=== PATIENT | female | born 1940 | race Caucasian/White ===

== ENCOUNTER → 2016-11-17 10:53 | Outpatient (CLI) | payer MEDICARE ==
[2015-04-16 10:23] VITALS: BMI 24.0
[~2016-11-17 10:53] MED LIST: ALENDRONATE SOD70 MG PO; ALEVE220 MG PO; ARTIFICIAL TEAR15 ML EACH EYE; BAYER CHEWABLE81 MG PO; BETADINE TP; BLACK COHOSH200 MG PO; CO Q-10200 MG PO; CO Q-1030 MG PO; COLACE100 MG PO; CORDARONE200 MG PO; COZAAR50 MG PO; ESTRADIOL; FISH OIL 1,0001 CA1 PO; FISH OIL 1,2001 CAP PO; GLUCOSAMINE & C1 CAP PO; GLUCOSAMINE HC500 MG PO; HYDROCHLOROTH12.5 M1 PO; HYDROCODONE-APA1 TAB PO; K-DUR20 MEQ PO; KLONOPIN1 MG PO; LASIX40 MG PO; MIRALAX17 GM PO; MIRAPEX ER1.5 MG PO; MIRAPEX0.5 MG PO; MOBIC7.5 MG PO; REQUIP1 MG PO; SENOKOT-S TABLE1 TAB PO; TENORETIC 50 TA1 TAB PO; TRAZODONE HCL150 MG PO; TRAZODONE HCL50 MG PO; ULTRAM50 MG PO; VITAMIN B-12100 MCG PO; VITAMIN D5000 UNIT PO; ZESTORETIC 20/21 TAB PO; [UNRECOGNIZED DRUG - OTHER] PO
== END | disposition home or self-care (01) ==
LOC: D.CT 10:53
DX: R51 Headache (principal)

== ENCOUNTER 2016-12-16 10:46 | Outpatient (CLI) | payer MEDICARE ==
[~2016-12-16] VITALS: Ht 158.8 cm; Wt 59.5 kg
--- NOTE | ~2016-12-16 | HEMODYNAMI ---
PATIENT:SHANICE SWENSON MEDICAL RECORD: [id number] : 44 LOCATION:DJADA ADMISSION DATE: 12/16/16 Generatedon:12/16/201613:12 Patient name: SHANICE SWENSON Patient #: [id number] : 1940 Date of study: 12/16/2016 Page: Of Hemodynamic Procedure Report Patient Data Patient Demographics Procedure consent was obtained First Name: SHANICE Gender: Female Last Name: MESSI : 1940 [facility] Initial: Sage Age: 76 year(s) Patient #: [id number] Race: SSN: [id number] Additional ID: [id number] Contact details Address: [address] [place] [address] [place] State: [place] City: [place] Zip code: [address] Past Medical History Allergies Allergen Reaction Date Comments Reported Other allergy 12/16/2016 benadryl Admission Admission Data Admission Date: 12/16/2016 Admission Time: 10:46 Arrival Date: 12/16/2016 Arrival Time: 13:00 Admit Source: Other Insurance Payor: Medicare Height (in.): 63 BSA: 1.64 (m2) Height (cm.): 160.02 BMI: 23.91 (kg/m2) Weight (lbs.): 135 Weight (kg.): 61.23 Lab Results Lab Result Date: 12/16/2016 Lab Result Time: 0:00 Biochemistry Name Units Result Min Max BUN mg/dl 16 --(---*)-- 7 18 Creatinine mg/dl 0.6 --(*---)-- 0.6 1.3 CBC Name Units Result Min Max Hemoglobin g/dl 14.5 --(*---)-- 13.5 17.5 Procedure Procedure Types Cath Procedure Diagnostic Procedure C [facility] w/Coronaries Procedure Description Procedure Date Procedure Date: 12/16/2016 Procedure Start Time: 12:52 Procedure End Time: 13:06 Procedure Staff Name Function Balbir Amos MD Performing Physician Dyana Gonzales RT Scrub Eden Ibarra RN Nurse Cony Carrillo RT Monitor Procedure Data Cath Procedure Fluoroscopy Diagnostic fluoroscopy Total fluoroscopy Time: 1.7 time: 1.7 min min Diagnostic fluoroscopy Total fluoroscopy dose: dose: 86.88 mGy 86.88 mGy Contrast Material Contrast Material Type Amount (ml) Isovue 370 58 Entry Location Entry Primary Successful Side Size Upsize Upsize Entry Closure Succes sful Closure Location (Fr) 1 (Fr) 2 (Fr) Remarks Device Remarks Femoral Right 5 Fr Exoseal artery Estimated blood loss: 5 ml Diagnostic catheters Device Type Used For End Catheter Placement Cordis 5Fr JL 4.0 Left Coronary Catheter (MP) Angiography Cordis 5Fr 3DRC Catheter Right Coronary (MP) Angiography Cordis 5Fr Pigtail Multi-vessel Catheter (MP) Angiography Procedure Complications No complications Procedure Medications Medication Administration Route Dosage Oxygen NC 2 l/min Heparin Flush Bag added to field 2 bags (1000units/500ml NS) Lidocaine 2% added to field 20 Fentanyl I.V. 25 mcg Versed I.V. 0.5 mg Fentanyl I.V. 50 mcg Versed I.V. 1 mg Fentanyl I.V. 25 mcg Versed I.V. 0.5 mg Hemodynamics Rest BSA: 1.64 (m2) HGB: 14.5 (g/dl) O2 Consumption: Estimated: 156.33 (ml/min) O2 Co nsumption indexed: Estimated:95.32 (ml/min/m) Heart Rate: 81 (bpm) Pressure Samples Time Site Value (mmHg) Purpose Heart Use Rate(bpm) 12:56 LV 147/79,68 Snapshot 75 Snapshots Pre Cath Intra NCS Post Cath Vital Signs Time Heart Resp SPO2 NIBP (mmHg) Rhythm Pain Sedation Rate (ipm) (%) Status Level (bpm) 12:43:33 78 16 100 169/97(121) NSR 0 (11) 10(A) , No pain 12:47:58 75 17 100 162/86(131) NSR 0 (11) 9(A) , No pain 12:52:18 75 19 99 142/82(122) NSR 0 (11) 9(A) , No pain 12:56:38 75 16 99 140/77(108) NSR 0 (11) 9(A) , No pain 13:00:54 75 17 98 143/77(112) NSR 0 (11) 9(A) , No pain 13:05:14 75 16 98 146/75(107) NSR 0 (11) 9(A) , No pain Medications Time Medication Route Dose Verified Delivered Reason Notes Effec tiveness by by 12:43:24 Oxygen NC 2 Eden Eden used for l/min Ibarra Ibarra cadd technician RN 12:43:31 Heparin Flush added 2 Eden Eden used for Bag to bags Ibarra Ibarra procedure (1000units/500ml field RN RN NS) 12:43:40 Lidocaine 2% added 20ml Eden Eden used for to vial Ibarra Ibarra procedure field RN RN 12:45:48 Fentanyl I.V. 25 Eden Eden for mcg Ibarra Ibarra sedation RN RN 12:45:54 Versed I.V. 0.5 Eden Eden for mg Ibarra Ibarra sedation RN RN 12:52:54 Fentanyl I.V. 50 Eden Eden for mcg Ibarra Ibarra sedation RN RN 12:52:58 Versed I.V. 1 mg Eden Eden for Ibarra Ibarra sedation RN RN 12:54:25 Fentanyl I.V. 25 Eden Eden for mcg Ibarra Ibarra sedation RN RN 12:54:28 Versed I.V. 0.5 Eden Eden for mg Ibarra Ibarra sedation RN director of religious life Log Time Note 12:00:49 Eden Ibarra RN sent for patient. Start room use. 12:14:14 Informed consent obtained and on chart 12:14:21 Diagnostic Cath Status : Elective 12:14:55 Time tracking: Regular hours 12:14:59 Plan of Care:Hemodynamics will remain stable., Cardiac rhythm will remain stable., Comfort level will be maintained., Respiratory function will remain adequate., Patient/ family verbilizes understanding of procedure., Procedure tolerated without complication., Recovers from procedure without complications.. 12:15:56 Admit Source: Other 12:15:58 Arrival Date: 12/16/2016 1:00:00 PM 12:16:06 Patient Height : 160.02 inches 12:16:15 Patient Weight : 61.23 lbs 12:16:15 Insurance Payor : Medicare 12:17:32 Lab Result : BUN 16 mg/dl 12:17:32 Lab Result : Hemoglobin 14.5 g/dl 12:17:32 Lab Result : Creatinine 0.6 mg/dl 12:33:35 Patient received from Pre/Post Procedure Room to CCL 2 Alert and oriented. Tansferred to table in Supine position. 12:33:36 Warm blankets applied, and nelson hugger turned on for patient comfort. 12:33:36 Correct patient and procedure confirmed by team. 12:33:38 ECG and BP/O2 sat monitors applied to patient. 12:38:20 Vital chart was started 12:38:21 Baseline sample Acquired. 12:38:28 Rhythm: sinus rhythm 12:38:29 Baseline sample Acquired. 12:42:34 Full Disclosure recording started 12:42:48 H&P Date Dictated: 11/24/2016 Within 30 days and on chart., H&P Addendum completed by physician on day of procedure. (MUST COMPLETE FOR ALL OUTPATIENTS). 12:42:50 Pre-procedure instructions explained to patient. 12:42:50 Pre-op teaching completed and patient verbalized understanding. 12:42:51 Family in waiting room. 12:42:52 Patient NPO since Midnight. 12:43:05 Patient allergic to Other allergybenadryl 12:43:24 Oxygen 2 l/min NC was given by Eden Ibarra RN; used for procedure; 12:43:27 Is the patient allergic to Iodine/contrast media? No. 12:43:28 Was the patient premedicated? No 12:43:31 Heparin Flush Bag (1000units/500ml NS) 2 bags added to field was given by Eden Ibarra RN; used for procedure; 12:43:34 Is patient on blood thinner?No 12:43:35 Patient diabetic? No. 12:43:37 Previous problem with sedation/anesthesia? No ? 12:43:39 Snore? Yes 12:43:40 Lidocaine 2% 20ml vial added to field was given by Eden Ibarra RN; used for procedure; 12:43:40 Sleep apnea? No 12:43:41 Deviated septum? No 12:43:42 Opens mouth fully? Yes 12:43:42 Sticks out tongue? Yes 12:43:44 Airway obstruction? No ? 12:43:52 Dentures? Yes in tight 12:43:57 Pre procedure: right dorsailis pedis pulse 1+ Palpable, but thready & weak; easily obliterated 12:43:59 Patient pain scale 0/10 ?. 12:44:10 IV patent on arrival in left antecubital with 0.9% NaCl at [facility]. 12:44:13 Lab results completed and on chart. 12:44:16 Right groin area was prepped with chlora-prep and draped in sterile fashion 12:44:17 Alarms reviewed by R. N. 12:44:18 Sharps counted by scrub and verified by R.N. 12:44:19 Physician arrived 12:44:20 --------ALL STOP TIME OUT------ 12:44:20 Final Timeout: patient, procedure, and site verified with staff and physician. All members of the team are in agreement. 12:44:22 Right groin site verified by team. 12:44:25 Physical assessment completed. ASA score P 2 - A patient with mild systemic disease as per Balbir Amos MD. 12:44:28 Sedation plan: IV Moderate Sedation Versed, Fentanyl 12:44:32 Use device set Femoral Dx 12:44:33 Acist Syringe opened to sterile field. 12:44:33 Bag Decanter opened to sterile field. 12:44:33 Medline Cath Pack opened to sterile field. 12:44:34 Terumo 5Fr Spur Sheath opened to sterile field. 12:44:35 St Gurvinder 260cm J .035 wire opened to sterile field. 12:44:36 Acist Hand Control opened to sterile field. 12:44:36 Acist Manifold opened to sterile field. 12:44:37 Diagnostic Infinity 5Fr Multipack catheter opened to sterile field. 12:44:37 Tegaderm 4 x 4 opened to sterile field. 12:45:48 Fentanyl 25 mcg I.V. was given by Eden Ibarra RN; for sedation; 12:45:54 Versed 0.5 mg I.V. was given by Eden Ibarra RN; for sedation; 12:47:20 Baseline sample Acquired. 12:51:01 Procedure started. 12:52:11 Local anesthetic to right femoral artery with Lidocaine 2% by Balbir Amos MD.INITIAL ACCESS ONLY 12:52:54 Fentanyl 50 mcg I.V. was given by Eden Ibarra RN; for sedation; 12:52:58 Versed 1 mg I.V. was given by Eden Ibarra RN; for sedation; 12:54:25 Fentanyl 25 mcg I.V. was given by Eden Ibarra RN; for sedation; 12:54:28 Versed 0.5 mg I.V. was given by Eden Ibarra RN; for sedation; 12:54:42 A 5 Fr sheath was inserted into the Right Femoral artery 12:57:26 A Cordis 5Fr JL 4.0 Catheter (MP) was advanced over the wire and used for Left Coronary Angiography. 12:57:35 LCA angiography performed. 12:57:38 Injector settings: Ml/sec: 3, Volume: 6, 12:57:57 Catheter removed. 12:58:02 A Cordis 5Fr 3DRC Catheter (MP) was advanced over the wire and used for Right Coronary Angiography. 12:58:10 RCA angiography performed. 12:58:13 Injector settings: Ml/sec: 3, Volume: 6, 12:59:27 Catheter removed. 12:59:41 A Cordis 5Fr Pigtail Catheter (MP) was advanced over the wire and used for Multi-vessel Angiography. 13:02:28 Aortic Root visualized 13:03:02 Catheter removed. 13:03:10 Cordis 5Fr Exoseal opened to sterile field. 13:03:33 Sheath removed intact; hemostasis achieved with Exoseal to the Right Femoral artery. 13:03:51 Procedure ended.(Physican Out) 13:04:11 Fluoroscopy time 01.70 minutes. 13:04:24 Fluoroscopy dose: 86.88 mGy 13:04:24 Flurop Dose total: 86.88 13:05:13 Contrast amount:Isovue 370 58ml. 13:05:15 Sharps counted by scrub and verified by R.N. 13:05:16 Insertion/operative site no bleeding no hematoma. 13:05:19 Post-op/insertion site Right Femoral artery dressed using a 4 x 4 and Tegaderm. 13:05:21 Post right femoral artery:stable 13:05:23 Post Procedure Pulses reassessed and unchanged 13:05:26 Post procedure rhythm: unchanged. 13:05:28 Estimated blood loss: 5 ml 13:05:30 Post procedure instruction explained to patient.Patient verbalizes understanding. 13:05:30 Patient needs reinforcement of post procedure teaching. 13:05:37 Procedure type changed to Cath procedure, Diagnostic procedure, LHC, LHC w/Coronaries 13:05:38 Procedure and supply charges have been captured, reviewed, submitted and are correct. 13:05:44 Procedure Complication : No complications 13:05:47 Vital chart was stopped 13:05:47 See physician's report for complete and final results. 13:05:59 Report given to Pre/Post Procedure Room. 13:06:01 Patient transfered to Pre/Post Procedure Room with Stretcher. 13:06:03 Procedure ended. 13:06:03 Full Disclosure recording stopped 13:06:11 End room use (Document Last) Device Usage Item Name Manufacture Quantity Catalog Hospital Part Current Minimal Lo t# / Number Charge Number Stock Stock Serial# Code Acist Acist 1 [id number] [id number] 051779 990502 20 Syringe [employer] Inc Bag Microtek 1 2002S 814193 74411 651482 5 Decanter Medical Inc. Medline Cardinal 1 [id number] 369999 16643 384313 5 Cath Pack Health Terumo 5Fr Terumo 1 [id number] 750520 435255 148061 [address] St Gurvinder 1 161767 409929 731807 316826 30 260cm J .035 wire Acist Hand Acist 1 51781 596810 547500 506550 5 Control Medical Systems Inc Acist Acist 1 49448 994741 111771 718704 5 Manifold Medical Systems Inc Diagnostic Cardinal 1 SO2109 721130 17511 168897 30 Infinity Health 5Fr Multipack catheter Tegaderm 4 3M 1 1626W 427719 668500 912156 5 x 4 Cordis 5Fr Cardinal 1 916998 5 JL 4.0 Health Catheter (MP) Cordis 5Fr Cardinal 1 286387 5 3DRC Health Catheter (MP) Cordis 5Fr Cardinal 1 508628 5 Pigtail Health Catheter (MP) Cordis 5Fr Cardinal 1 EX500 820103 676698 793412 10 [employer] Signature Audit [place] Stage Time Signature Unsigned Intra-Procedure 12/16/2016 Cony Carrillo 1:12:13 PM RT(R) Signatures Monitor : Cony Carrillo RT Signature : Date : Time : [address] [address] [place] [address]
[~2016-12-16 10:46] MED LIST changes: -COZAAR50 MG PO; -FISH OIL 1,2001 CAP PO; -HYDROCHLOROTH12.5 M1 PO; -MIRAPEX ER1.5 MG PO
[2016-12-16] MEDS ORDERED: COZAAR50 MG PO (11:21)
[2016-12-16] MEDS ORDERED: HYDROCHLOROTH12.5 M1 PO (11:22)
[2016-12-16] MEDS ORDERED: MIRAPEX ER1.5 MG PO (11:23)
[2016-12-16] MEDS ORDERED: TRAZODONE HCL150 MG PO (11:24)
[2016-12-16] MEDS ORDERED: FISH OIL 1,2001 CAP PO (11:28)
[2016-12-16 11:29] VITALS: BP 175/86; Ht 158.8 cm; Wt 59.5 kg
[2016-12-16 11:34] LABS: BASOPHILS 0.2 % (0.0-2.0); EOSINOPHILS 1.8 % (0-7); HEMATOCRIT 43.6 % (36.0-48.0); HEMOGLOBIN 14.5 g/dL (12-16); IMMATURE GRANULOCYTES 0.2 % (0-5); LYMPHOCYTES 23.8 % (15-50); MCH 28.1 pg (26.0-34.0); MCHC 33.3 g/dL (31.0-37.0); MCV 84.5 fL (80.0-100.0); MONOCYTES 8.4 % (2-11); NEUTROPHILS 65.6 % (40-80); RBC 5.16 10x6/uL (4.00-5.40); RDW 13.3 % (11.5-14.5); WBC 4.5 10x3/uL (4.8-10.8)
[2016-12-16 11:40] LABS: PLATELET COUNT 190 10x3/uL (130-400)
[2016-12-16 11:45] LABS: CALC OSMOLALITY 271 mosm/kg (275-300); CALCIUM 9.8 mg/dL (8.5-10.1); CARBON DIOXIDE 30.2 mmol/L (21.0-32.0); CHLORIDE - SERUM 98 mmol/L (98-107); CREATININE - SERUM 0.6 mg/dL (0.6-1.3); GLUCOSE 88 mg/dL (74-106); POTASSIUM - SERUM 3.6 mmol/L (3.5-5.1); SODIUM 136 mmol/L (136-145); UREA NITROGEN 16 mg/dL (7-18); eGFR NON AFRICAN AMERICAN > 90 mL/min (90-120)
--- NOTE | 2016-12-16 13:55 | NUR ---
1330- 500CC OUT-BEDPAN, RIGHT GROIN CDI, NO HEMATOMA OR BLEEDING NOTED. SOFT TO TOUCH
--- NOTE | 2016-12-16 16:48 | NUR ---
1345-GROIN CDI 1400-NO CHANGE IN GROIN 1515-IV D'C WITH CATH TIP INTACT, WRITTEN AND VERBAL INSTRUCTIONS GIVEN TO PT AND - UNDERSTOOD. D'C HOME. DENIES FURTHUR NEEDS
--- NOTE | 2016-12-30 08:17 | OP ---
PATIENT NAME: SHANICE SWENSON MEDICAL RECORD: [id number] :44 LOCATION:D.CAT ADMISSION DATE: SURGEON: AARON JUAREZ M.D. DATE OF OPERATION: 12/16/2016 Catheterization Report REFERRING PHYSICIAN: Tyson Santiago DO PROCEDURES PERFORMED: 1. Selective coronary angiography. 2. Aortic root injection. INDICATION: A 76-year-old woman, who presents with symptoms of accelerating angina. EQUIPMENT USED: A 5-Kyrgyz JL4, Ortiz right, pigtail catheter. TECHNIQUE: A 5-Kyrgyz sheath was inserted in retrograde fashion in the right common femoral artery. Next, selective coronary angiography was performed in standard 5-Kyrgyz JL4 and Ortiz right. The aortic root injection was performed using pigtail catheter. CORONARY ANATOMY: 1. Left main: Left main trunk is moderate in caliber. It gives rise to the LAD and circumflex. It is angiographically normal. 2. LAD: This is a moderate caliber vessel, which terminates to just the proximal apex. It is a smooth-walled vessel and angiographically normal. 3. Circumflex: This vessel is small in caliber. It is a smooth-walled vessel and angiographically normal. 4. Right coronary artery: This vessel is quite large and dominant. The posterolateral branch and PDA encompassed the apex. This vessel is smooth-walled and angiographically normal. 5. 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 It appears the single arch may have been replaced as well. The aortic valve demonstrates no insufficiency. There is no ____ ascending aorta. IMPRESSION: 1. Normal coronary arteries. 2. No evidence of aortic insufficiency. PLAN: At this point, we will continue with medical management. TRANSINT:[id number] Voice Confirmation ID: [id number] DOCUMENT ID: [id number] AARON JUAREZ M.D. at 0817 CC: [id number] DICTATION DATE: 12/16/16 1310 FURNACE CARETAKER: 12/16/16 1817 DEP CLI 12/16/16 [id number] [place] [address]
== END 2016-12-16 15:30 | disposition home or self-care (01) ==
LOC: D.CATH 10:46
PROVIDERS: Internal Medicine Cardiovascular Disease
DX: I20.0 Unstable angina (principal); Z95.4 Presence of other heart-valve replacement

== ENCOUNTER → 2016-12-23 17:13 | Outpatient (CLI) | payer MEDICARE ==
[2016-12-16 11:29] VITALS: BMI 23.6
[~2016-12-23 17:13] MED LIST changes: +COZAAR50 MG PO; +FISH OIL 1,2001 CAP PO; +HYDROCHLOROTH12.5 M1 PO; +MIRAPEX ER1.5 MG PO
== END | disposition home or self-care (01) ==
LOC: D.MAMMO 11-19 15:30
DX: Z12.31 Encounter for screening mammogram for malignant neoplasm of breast (principal)

== ENCOUNTER 2017-05-04 07:31 | Day surgery (SDC) | payer MEDICARE ==
[2017-05-01 11:01] LABS: HEMATOCRIT 40.4 % (36.0-48.0); HEMOGLOBIN 13.4 g/dL (12-16); MCH 29.2 pg (26.0-34.0); MCHC 33.2 g/dL (31.0-37.0); MEAN PLATELET VOLUME 8.4 fL (7.4-10.4); RBC 4.59 10x6/uL (4.00-5.40); RDW 13.8 % (11.5-14.5); WBC 4.7 10x3/uL (4.8-10.8)
[2017-05-01 11:15] LABS: CALC OSMOLALITY 269 mosm/kg (275-300); CARBON DIOXIDE 30.2 mmol/L (21.0-32.0); CHLORIDE - SERUM 97 mmol/L (98-107); CREATININE - SERUM 0.7 mg/dL (0.6-1.3); GLUCOSE 92 mg/dL (74-106); SODIUM 134 mmol/L (136-145); UREA NITROGEN 17 mg/dL (7-18); eGFR NON AFRICAN AMERICAN 86 mL/min (90-120)
[~2017-05-04] VITALS: Ht 154.9 cm; Wt 56.7 kg
[~2017-05-04 07:31] MED LIST changes: +MELOXICAM TAB 15M PO
[2017-05-04 11:37] VITALS: BP 178/90; Ht 154.9 cm; Wt 56.7 kg
== END 2017-05-04 17:25 | disposition home or self-care (01) ==
LOC: D.OPS 07:31 → D.PAN 12:00 → D.OPS 12:00
PROVIDERS: Anesthesiology
DX: M21.612 Bunion of left foot (principal); Z01.810 Encounter for preprocedural cardiovascular examination; Z01.811 Encounter for preprocedural respiratory examination; Z01.812 Encounter for preprocedural laboratory examination

== ENCOUNTER → 2017-06-16 16:45 | Outpatient (CLI) | payer MEDICARE ==
[2017-05-04 11:37] VITALS: BMI 23.6
== END | disposition home or self-care (01) ==
LOC: D.US 16:30
DX: R60.0 Localized edema (principal)

== ENCOUNTER 2017-09-10 10:58 | Outpatient (CLI) | payer MEDICARE ==
[~2017-09-10] VITALS: Ht 154.9 cm; Wt 59.5 kg
--- NOTE | ~2017-09-10 | HEMODYNAMI ---
PATIENT:SHANICE SWENSON MEDICAL RECORD: [id number] : 44 LOCATION:D.CAT ADMISSION DATE: 09/10/17 Generatedon:09/10/201713:12 Patient name: SHANICE SWENSON Patient #: [id number] : 1940 Date of study: 09/10/2017 Page: Of Hemodynamic Procedure Report Patient Data Patient Demographics Procedure consent was obtained First Name: SHANICE Gender: Female Last Name: MESSI : 1940 [facility] Initial: Sage Age: 77 year(s) Patient #: [id number] Race: SSN: [id number] Additional ID: [id number] Contact details Address: [address] [place] [address] [place] State: [place] City: [place] Zip code: [address] Past Medical History Allergies Allergen Reaction Date Comments Reported Other allergy 12/16/2016 benadryl JR inhibitors 09/10/2017 Other allergy 09/10/2017 Benadryl Admission Admission Data Admission Date: 09/10/2017 Admission Time: 10:58 Procedure Procedure Types Cath Procedure Diagnostic Procedure ADOLFO Procedure Description Procedure Date Procedure Date: 09/10/2017 Procedure Start Time: 12:51 Procedure Staff Name Function Raciel Herrera MD Performing Physician Annika Logan RT Monitor Armaan Yates RN Nurse David Rankin MD Additional personnel Jose Alberto Montes Wood Room Supervisor Procedure Data Procedure Complications No complications Procedure Medications Medication Administration Route Dosage Oxygen NC 2 l/min Hurricaine [place] P.O. Sprays Refer to Anesthesia Notes for Sedation Medications Hemodynamics Rest Pre Cath Intra NCS Post Cath Vital Signs Time Heart Resp SPO2 etCO2 NIBP (mmHg) Rhythm Pain Sedation Rate (ipm) (%) (mmHg) Status Level (bpm) 12:52:41 91 17 100 11.3 157/94(130) NSR 0 (11) 10(A) , No pain 12:57:01 80 13 98 36.1 152/77(125) NSR 0 (11) 9(A) , No pain 13:01:15 75 14 94 35.4 138/72(116) NSR 0 (11) 9(A) , No pain 13:05:27 75 17 95 27.1 150/81(119) NSR 0 (11) 9(A) , No pain 13:10:38 75 16 96 24.8 155/86(110) NSR 0 (11) 10(A) , No pain Medications Time Medication Route Dose Verified Delivered Reason Notes Effective ness by by 12:49:49 Oxygen NC 2 Raciel Crook used for l/min St. Rojelio Yates RN procedure 12:50:08 Hurricaine P.O. Sprays Raciel Schrader used for Hartford [facility] procedure MD SMITH 12:51:56 Refer to Raciel Schrader Anesthesia [facility] Notes for MD SMITH Sedation Medications Procedure Log Time Note 12:36:32 Armaan Yates RN sent for patient. Start room use. 12:36:33 Time tracking: Regular hours 12:36:36 Plan of Care:Hemodynamics will remain stable., Cardiac rhythm will remain stable., Comfort level will be maintained., Respiratory function will remain adequate., Patient/ family verbilizes understanding of procedure., Procedure tolerated without complication., Recovers from procedure without complications.. 12:43:45 Patient received from Pre/Post Procedure Room to CCL 3 Alert and oriented. Tansferred to table in Supine position. 12:43:47 Warm blankets applied, and nelson hugger turned on for patient comfort. 12:43:47 Correct patient and procedure confirmed by team. 12:43:48 Signed procedure consent form obtained from patient. 12:43:49 ECG and BP/O2 sat monitors applied to patient. 12:43:50 Full Disclosure recording started 12:46:43 H&P Date Dictated: 08/13/2017 Within 30 days and on chart., H&P Addendum completed by physician on day of procedure. (MUST COMPLETE FOR ALL OUTPATIENTS). 12:46:44 Pre-procedure instructions explained to patient. 12:46:44 Pre-op teaching completed and patient verbalized understanding. 12:46:47 Family in waiting room. 12:46:49 Patient NPO since Midnight. 12:47:01 Patient allergic to JR inhibitors 12:47:12 Patient allergic to Other allergyBenadryl 12:47:14 Is the patient allergic to Iodine/contrast media? No. 12:47:16 Is patient on blood thinner?No 12:47:18 Patient diabetic? No. 12:47:21 Previous problem with sedation/anesthesia? No ? 12:47:22 Snore? Yes 12:47:23 Sleep apnea? No 12:47:23 Deviated septum? No 12:47:29 Opens mouth fully? Yes 12:47:30 Sticks out tongue? Yes 12:47:31 Airway obstruction? No ? 12:47:33 Dentures? Yes Out 12:47:37 Patient pain scale 0/10 ?. 12:47:44 IV patent on arrival in left hand with 0.9% NaCl at [facility]. 12:47:48 Lab results completed and on chart. 12:47:51 Alarms reviewed by RLizbeth N. 12:48:13 David Rankin MD present and monitoring patient for TIVA. 12:48:18 Jose Alberto Montes Music Worker present for ADOLFO. 12:49:49 Oxygen 2 l/min NC was administered by Armaan Yates RN; used for procedure; 12:50:08 Hurricaine [place] Sprays P.O. was administered by Raciel Herrera MD; used for procedure; 12:50:42 Final Timeout: patient, procedure, and site verified with staff and physician. All members of the team are in agreement. 12:50:51 Physical assessment completed. ASA score P 2 - A patient with mild systemic disease as per Raciel Herrera MD. 12:50:55 Sedation plan: TIVA Medication:Propofol 12:51:30 Vital chart was started 12:51:33 Rhythm: sinus rhythm 12:51:56 Refer to Anesthesia Notes for Sedation Medications was administered by Raciel Herrera MD; ; 12:52:05 Procedure started. 12:52:20 ADOLFO started. 12:53:49 Suction Tubing opened to sterile field. 12:59:38 ADOLFO completed. 12:59:41 Procedure ended.(Physican Out) 13:02:18 Post procedure rhythm: unchanged. 13:02:22 Post-procedure physical assessment completed. ASA score P 2 - A patient with mild systemic disease as per Raciel Herrera MD. 13:02:24 Post procedure instruction explained to patient.Patient verbalizes understanding. 13:02:25 Patient needs reinforcement of post procedure teaching. 13:03:35 Procedure and supply charges have been captured, reviewed, submitted and are correct. 13:03:42 Procedure Complication : No complications 13:03:44 See physician's report for complete and final results. 13:04:13 Report given to Pre/Post Procedure Room. 13:04:17 Patient transfered to Pre/Post Procedure Room with Stretcher. 13:05:28 End room use (Document Last) 13:12:08 Vital chart was stopped Device Usage Item Manufacture Quantity Catalog Hospital Part Current Minimal Lot# / Name Number Charge Number Stock Stock Serial# Code Suction Cardinal 1 [id number] 5 [facility] Signature Audit [place] Stage Time Signature Unsigned Intra-Procedure 09/10/2017 Annika 1:12:04 PM Counts RT(R) Signatures Monitor : Annika Signature : Counts RT Date : Time : [address] [id number]
[2017-09-10 11:37] LABS: HEMATOCRIT 41.4 % (36.0-48.0); HEMOGLOBIN 13.6 g/dL (12-16); MCH 29.6 pg (26.0-34.0); MCHC 32.9 g/dL (31.0-37.0); MCV 90.2 fL (80.0-100.0); MEAN PLATELET VOLUME 8.7 fL (7.4-10.4); RBC 4.59 10x6/uL (4.00-5.40); RDW 14.3 % (11.5-14.5); WBC 5.5 10x3/uL (4.8-10.8)
[2017-09-10 11:49] LABS: CALC OSMOLALITY 275 mosm/kg (275-300); CALCIUM 8.9 mg/dL (8.5-10.1); CARBON DIOXIDE 27.5 mmol/L (21.0-32.0); CHLORIDE - SERUM 101 mmol/L (98-107); CREATININE - SERUM 0.7 mg/dL (0.6-1.3); GLUCOSE 85 mg/dL (74-106); POTASSIUM - SERUM 3.9 mmol/L (3.5-5.1); SODIUM 136 mmol/L (136-145); UREA NITROGEN 27 mg/dL (7-18); eGFR NON AFRICAN AMERICAN 86 mL/min (90-120)
[2017-09-10 11:58] VITALS: Ht 154.9 cm; Wt 59.5 kg
--- NOTE | 2017-09-14 13:58 | TEE ---
PATIENT:SHANICE SWENSON MEDICAL RECORD: [id number] LOCATION:D.CAT AGE OF PATIENT: 77 ADMISSION DATE: 09/10/17 SEX: F REFERRING PHYSICIAN: INTERPRETING PHYSICIAN: ALEX MONTANEZ MD TRANSESOPHAGEAL ECHOCARDIOGRAM ADOLFO CHARGE Y INDICATIONS: ASSESS MITRAL REGURG PREMEDICATIONS: PATIENT'S RESPONSE PROCEDURE DOPPLER MEASUREMENTS: LVIT LA PA RA LVOT RVOT Asc. Ao AV Gradient Peak AV Mean AV Area MV Gradient Peak MV Mean MV Area INTERPRETATION: Doppler: 2-D: COLOR FLOW DOPPLER MILD PLUS MR NORMAL SALINE STUDY: MISCELLANOUS: DIAGNOSIS: PLAN: Veneer Drier:3 Dr. Herrera Rose Grower: Luzma CAMPBELL COMMENTS: ANN PATIENT DATE OF SERVICE: 09/10/2017 Transesophageal Note. DESCRIPTION OF PROCEDURE: After general sedation with TIVA via anesthesia, a transesophageal Omniplane probe was placed into the distal esophagus and proximal stomach without difficulty. FINDINGS: As follows: Borderline LVH. LV internal dimensions are normal. TRANSESOPHAGEAL ECHOCARDIOGRAM REPORT [id number] SHANICE SWENSON There is mild global hypo, more pronounced lateral hypo, overall function appears to be reduced at 40% to 45%. 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 Left atrium appears of normal dimensions. Mitral valve shows no prolapse, no more than mild plus MR. Multiple planes were taken through the mitral valve to assure no hidden jet. Left atrial appendage is well visualized. No evidence of thrombus. Right-sided chambers, these are grossly normal with trivial TR. Incidental node is made of the RV pacemaker lead in the RV apex. At the end of the procedure, the probe was turned posteriorly and this showed minimal atherosclerotic debris in the descending aorta. TRANSINT:[id number] Voice Confirmation ID: [id number] DOCUMENT ID: [id number] at 1358 CC: [id number] DICTATION DATE: 09/10/17 1307 DECORATING MACHINE TENDER: 09/11/17 0048 DEP CLI 09/10/17 [id number] [place] [address]
== END 2017-09-10 14:20 | disposition home or self-care (01) ==
LOC: D.CATH 10:58
PROVIDERS: Internal Medicine Interventional Cardiology
DX: I34.0 Nonrheumatic mitral (valve) insufficiency (principal)

== ENCOUNTER 2017-11-26 06:25 | Day surgery (SDC) | payer OTHER ==
[2017-11-25 08:46] LABS: HEMATOCRIT 41.3 % (36.0-48.0); MCHC 33.9 g/dL (31.0-37.0); MCV 88.6 fL (80.0-100.0); MEAN PLATELET VOLUME 8.2 fL (7.4-10.4); RBC 4.66 10x6/uL (4.00-5.40); RDW 14.2 % (11.5-14.5); WBC 6.6 10x3/uL (4.8-10.8)
[2017-11-25 08:48] LABS: CALC OSMOLALITY 260 mosm/kg (275-300); CALCIUM 9.4 mg/dL (8.5-10.1); CARBON DIOXIDE 30.7 mmol/L (21.0-32.0); CHLORIDE - SERUM 93 mmol/L (98-107); CREATININE - SERUM 0.7 mg/dL (0.6-1.3); GLUCOSE 96 mg/dL (74-106); POTASSIUM - SERUM 3.5 mmol/L (3.5-5.1); SODIUM 129 mmol/L (136-145); UREA NITROGEN 17 mg/dL (7-18); eGFR NON AFRICAN AMERICAN 86 mL/min (90-120)
[~2017-11-26] VITALS: Ht 152.4 cm; Wt 59.4 kg
--- NOTE | ~2017-11-26 | OP ---
PATIENT NAME: SHANICE SWENSON MEDICAL RECORD: [id number] :42 [facility] AD[facility] DATE: SURGEON: NITIN RIVERS DATE OF OPERATION: 11/26/2017 SURGEON: Nitin Rivers DPM PREOPERATIVE DIAGNOSES: 1. Hallux abductovalgus deformity, right foot. 2. Hammertoe deformity, second toe, right foot. 3. Painful hardware, right ankle. POSTOPERATIVE DIAGNOSES: 1. Hallux abductovalgus deformity, right foot. 2. Hammertoe deformity, second toe, right foot. 3. Painful hardware, right ankle. PROCEDURE: 1. Hakeem-Gaudencio bunionectomy, right foot. 2. Arthroplasty, second toe, right foot. 3. Removal of hardware, right ankle. ANESTHESIA: General. HEMOSTASIS: Pneumatic ankle tourniquet inflated to 250 mmHg. ESTIMATED BLOOD LOSS: Minimal. MATERIALS: A 3-0 Vicryl, 4-0 Vicryl, 4-0 Prolene, one 2.5 mm headless screw, and one compression staple (both [employer]). INJECTABLES: 30 cc of 0.5% bupivacaine plain (15 cc preoperative, 15 cc postoperative). The patient has a longstanding history of the above-mentioned deformities. She also has painful hardware in the right ankle. I have discussed with her the proposed procedures. Risks and benefits were reviewed. Complications were discussed. All questions were answered. She was appropriately consented for the above-mentioned procedures. DESCRIPTION OF PROCEDURE: The patient was brought in the operating room and placed in the operating table in supine position. A timeout was called with Dr. Rivers, who identified the patient's surgical site and surgeries to be performed. Once appropriate anesthesia was obtained, the foot was prepped and draped in the usual aseptic manner. The pneumatic ankle tourniquet was inflated to 250 mmHg on the well-padded right ankle. PROCEDURE #1: Hakeem-Gaudencio bunionectomy, right foot. Attention was directed to the dorsal aspect of the first metatarsophalangeal joint where a 6 cm curvilinear incision was made just medial to the extensor hallucis longus tendon. This incision was carried deep to soft tissue with care being taken to retract all vital neurovascular structures. All bleeders were OPERATIVE REPORT [id number] MESSISHANICE cauterized along the way. The first intermetatarsal space was then entered utilizing both sharp and blunt dissection. The conjoined tendon of the abductor hallucis muscle was identified at the base of the proximal phalanx and it was sharply transected. Attention was then directed more proximally and the fibular sesamoidal ligament was identified and sharply transected. Attention was then directed to the dorsal aspect of the first metatarsophalangeal joint and the periosteum was reflected from the joint, thus revealing the joint and the hypertrophied medial eminence of the first metatarsal. Utilizing a sagittal saw, the hypertrophied medial eminence was removed. Next, utilizing a sagittal saw, a V-shaped osteotomy was created in the head of the first metatarsal. This was a through and through osteotomy with the apex oriented distally. The capital fragment was then translocated laterally and impacted upon the first metatarsal shaft. Next, utilizing manufacture's recommended technique, one 2.5 mm headless screw was placed across the osteotomy. Excellent fixation was noted with placement of the screw. All over hanging bone from the medial aspect of the first metatarsal was removed with the sagittal saw. Attention was then directed to the proximal aspect of the proximal phalanx where a V-shaped osteotomy was created with the apex oriented laterally. The wedge of bone was then removed from the osteotomy and the osteotomy was reduced. Next, utilizing manufactured recommended technique, 1 compression staple was placed across the osteotomy. Excellent fixation was noted with placement of the staple. The surgical site was then irrigated with copious amounts of normal sterile saline via bulb syringe. The periosteum was reapproximated and coapted utilizing 3-0 Vicryl. The subcutaneous was reapproximated and coapted using 4-0 Vicryl. The skin was reapproximated and coapted using 4-0 Prolene. Procedure #2: Arthroplasty, second toe, right foot. Attention was directed to the dorsal aspect of the second toe of the right foot where a 3-cm linear incision was made. This incision was carried deep to soft tissue with care being taken to retract all vital neurovascular structures. All bleeders were cauterized along the way. The extensor tendon was identified at the level of the proximal interphalangeal joint and sharply transected from medial to lateral. The capsular structures were then freed from the head of the proximal phalanx. Utilizing a sagittal saw, the head of the proximal phalanx was removed. The bone was then remodeled with a rongeur. The surgical site was then irrigated with copious amounts of normal sterile saline via bulb syringe. The extensor tendon and periosteum were reapproximated and coapted utilizing 3-0 Vicryl. Procedure #3: Removal of hardware, right ankle. Attention was directed to the right ankle where 2 easily palpated screw heads were identified. Incision was made directly over these screw heads. Next, utilizing a combination of needle dagger or [place] elevator and hemostat, these screws were removed in toto. The surgical site was then investigated for any remaining prominent internal fixation and none was noted. The surgical site was then irrigated with copious amounts of normal sterile saline via bulb syringe. The subcutaneous was reapproximated and coapted using 4-0 Vicryl. The skin was reapproximated and coapted using 4-0 Prolene. A dressing consisting of Xeroform, 4 x 4's, Kerlix, and Ghanshyam bandage were applied OPERATIVE REPORT [id number] SHANICE SWENSON to all surgical sites. The pneumatic ankle tourniquet was deflated and capillary refill time is immediate to all digits of the right foot. The patient was discharged home with instructions to ice and elevate her right foot. She has a boot from previous foot surgery that she is to utilize at all times when ambulating. She was provided with my cell phone number for any after hour difficulties and there were no complications with this procedure. TRANSINT:[id number] Voice Confirmation ID: [id number] DOCUMENT ID: [id number] NITIN RIVERS CC: [id number] DICTATION DATE: 11/26/17 160 [employer] SUPERINTENDENT: 11/26/17 1703 [facility] [address] [place] [address]
[~2017-11-26 06:25] MED LIST changes: +ASPIRIN EC81 M1 PO; +L-LYSINE500 M1 PO; +PROBIOTIC250 MG PO
[2017-11-26 10:54] VITALS: BP 167/96; Ht 152.4 cm; Wt 59.4 kg
== END 2017-11-26 15:30 | disposition home or self-care (01) ==
LOC: D.OPS 06:25 → D.PAN 11:30 → D.OPS 11:30
PROVIDERS: Anesthesiology
DX: M20.11 Hallux valgus (acquired), right foot (principal); M20.41 Other hammer toe(s) (acquired), right foot; T84.223S Displacement of internal fixation device of bones of foot and toes, sequela; I10 Essential (primary) hypertension; I48.91 Unspecified atrial fibrillation; Z95.2 Presence of prosthetic heart valve; Z01.812 Encounter for preprocedural laboratory examination

== ENCOUNTER 2018-01-27 03:48 | Inpatient (IN) | payer OTHER ==
[~2018-01-27] VITALS: Ht 160 cm; Wt 59.1 kg
--- NOTE | ~2018-01-27 | OP ---
PATIENT NAME: SHANICE SWENSON MEDICAL RECORD: [id number] :42 LOCATION:[facility] ADMISSION DATE:01/27/18 SURGEON: AMINATA FRAUSTO MD DATE OF OPERATION: 01/29/2018 PREOPERATIVE DIAGNOSIS: Comminuted intertrochanteric hip fracture of the left hip. POSTOPERATIVE DIAGNOSIS: Comminuted intertrochanteric hip fracture of the left hip. PROCEDURE: Cephalomedullary fixation of the left intertrochanteric hip fracture -- gamma nail. SURGEON: Aminata Frausto MD ANESTHESIA: General. INTRAOPERATIVE COMPLICATIONS: None. SUMMARY OF PATHOLOGIC FINDINGS: Essentially none. The hip reduced nicely. OPERATIVE SUMMARY IN DETAIL: After obtaining the appropriate preoperative orthopedic surgery consent as well as anesthetic consultation, evaluation, and clearance, the patient was brought to the operating room and placed on the operating table in the supine position. After general laryngeal mask was administered, the patient was placed on the fracture table. On the fracture table, the right leg was placed in the well leg ugalde, left leg was placed in the traction boot. The patient was secured firmly to the fracture table using the strap and system. Fluoroscopy was brought in, reduction was performed under fluoroscopic guidance. At this point, the hip was prepped and draped in routine sterile fashion. Incision was made superior to the tip of the greater trochanter. An awl was used to make a starting point. A ball-tipped guidewire was passed. Over reaming was then followed by insertion of the 125 left short gamma nail. The gamma nail was placed at the appropriate depth and the guide pin for the compression screw was placed in a low center-center position on both AP and lateral fluoroscopic planes. The appropriate reamer was then followed by insertion of the compression nail. Derotational screw was then put into place and backed off to allow for compression, but not rotation. Compression was then performed using the compression device. Having completed this, distal interlocking screw was placed using distal locking guide on the gamma nail system under direct fluoroscopy. Final radiographs were taken and submitted for radiologist review. Wounds were copiously irrigated and closed in usual fashion. Sterile dressings were applied. The patient was awakened and she was taken to recovery in stable condition. All final sponge and needle counts were correct. ESTIMATED BLOOD LOSS: 200 cc. TRANSINT:[id number] Voice Confirmation ID: [id number] DOCUMENT ID: [id number] OPERATIVE REPORT [id number] SHANICE SWENSON MD, AMINATA CORTES at 1842 CC: [id number] DICTATION DATE: 01/29/18 1523 SUPERVISOR PAIRING AND INSPECTING: 01/29/18 1547 ADM IN [place] [id number] [place] [address]
[2018-01-27 04:22] LABS: APPEARANCE CLEAR (CLEAR); BILIRUBIN NEGATIVE (NEGATIVE); COLOR STRAW (YELLOW); GLUCOSE NEGATIVE (NEGATIVE); KETONE NEGATIVE (NEGATIVE); NITRITE NEGATIVE (NEGATIVE); PROTEIN NEGATIVE (NEGATIVE); SPECIFIC GRAVITY 1.005 (1.005-1.020); UROBILINOGEN NORMAL (NORMAL)
[2018-01-27 05:01] LABS: BASOPHILS 0.1 % (0-2); EOSINOPHILS 1.2 % (0-7); HEMATOCRIT 38.7 % (36.0-48.0); HEMOGLOBIN 13.1 g/dL (12-16); IMMATURE GRANULOCYTES 0.4 % (0-5); LYMPHOCYTES 17.5 % (15-50); MCH 30.3 pg (26.0-34.0); MCHC 33.9 g/dL (31.0-37.0); MCV 89.4 fL (80.0-100.0); MEAN PLATELET VOLUME 8.4 fL (7.4-10.4); NEUTROPHILS 72.8 % (40-80); PLATELET COUNT 239 10x3/uL (130-400); RBC 4.33 10x6/uL (4.00-5.40); WBC 7.6 10x3/uL (4.8-10.8)
[2018-01-27 05:17] LABS: ALBUMIN 3.7 g/dL (3.4-5.0); ALKALINE PHOSPHATASE 82 U/L (46-116); ALT (SGPT) 30 U/L (10-68); CALC OSMOLALITY 271 mosm/kg (275-300); CALCIUM 9.3 mg/dL (8.5-10.1); CARBON DIOXIDE 28.1 mmol/L (21.0-32.0); CHLORIDE - SERUM 97 mmol/L (98-107); CREATININE - SERUM 0.6 mg/dL (0.6-1.3); GLUCOSE 101 mg/dL (74-106); POTASSIUM - SERUM 3.2 mmol/L (3.5-5.1); SODIUM 136 mmol/L (136-145); UREA NITROGEN 12 mg/dL (7-18); eGFR NON AFRICAN AMERICAN > 90 mL/min (90-120)
[2018-01-27 15:39] VITALS: BP 132/72
[2018-01-27 15:45] VITALS: BP 134/64; Ht 160 cm; Wt 59.1 kg
[2018-01-27 19:54] VITALS: BP 111/63
[2018-01-28] VITALS (7 sets, daily range): BP systolic 120–171; BP diastolic 64–83
[2018-01-28 04:14] LABS: BASOPHILS 0 % (0-2); HEMOGLOBIN 11.6 g/dL (12-16); IMMATURE GRANULOCYTES 0.2 % (0-5); MCH 29.9 pg (26.0-34.0); MCHC 33.1 g/dL (31.0-37.0); MCV 90.2 fL (80.0-100.0); MEAN PLATELET VOLUME 8.5 fL (7.4-10.4); MONOCYTES 8.1 % (2-11); NEUTROPHILS 75.7 % (40-80); PLATELET COUNT 228 10x3/uL (130-400); RBC 3.88 10x6/uL (4.00-5.40); RDW 13.1 % (11.5-14.5)
[2018-01-28 04:30] LABS: WBC 4.9 10x3/uL (4.8-10.8)
[2018-01-28 04:31] LABS: INR 1.03 (0.85-1.17); PROTIME 13.1 SECONDS (11.6-15.0)
[2018-01-28 04:39] LABS: CALC OSMOLALITY 267 mosm/kg (275-300); CALCIUM 8.3 mg/dL (8.5-10.1); CHLORIDE - SERUM 99 mmol/L (98-107); CREATININE - SERUM 0.6 mg/dL (0.6-1.3); GLUCOSE 95 mg/dL (74-106); POTASSIUM - SERUM 3.8 mmol/L (3.5-5.1); SODIUM 134 mmol/L (136-145); UREA NITROGEN 12 mg/dL (7-18); eGFR NON AFRICAN AMERICAN > 90 mL/min (90-120)
[2018-01-29 03:29] LABS: BASOPHILS 0.3 % (0-2); EOSINOPHILS 3.2 % (0-7); HEMATOCRIT 33.8 % (36.0-48.0); HEMOGLOBIN 11.2 g/dL (12-16); IMMATURE GRANULOCYTES 0.5 % (0-5); LYMPHOCYTES 17.2 % (15-50); MCH 29.6 pg (26.0-34.0); MCHC 33.1 g/dL (31.0-37.0); MCV 89.4 fL (80.0-100.0); MEAN PLATELET VOLUME 8.7 fL (7.4-10.4); MONOCYTES 12.3 % (2-11); NEUTROPHILS 66.5 % (40-80); PLATELET COUNT 188 10x3/uL (130-400); RBC 3.78 10x6/uL (4.00-5.40); WBC 3.7 10x3/uL (4.8-10.8)
[2018-01-29 03:41] LABS: ALBUMIN 2.9 g/dL (3.4-5.0); ALKALINE PHOSPHATASE 57 U/L (46-116); ALT (SGPT) 24 U/L (10-68); BILIRUBIN - TOTAL 0.76 mg/dL (0.2-1.3); CALC OSMOLALITY 261 mosm/kg (275-300); CALCIUM 8.3 mg/dL (8.5-10.1); CHLORIDE - SERUM 96 mmol/L (98-107); CREATININE - SERUM 0.6 mg/dL (0.6-1.3); GLUCOSE 99 mg/dL (74-106); POTASSIUM - SERUM 3.9 mmol/L (3.5-5.1); PROTEIN - SERUM 6.5 g/dL (6.4-8.2); SODIUM 131 mmol/L (136-145); UREA NITROGEN 11 mg/dL (7-18); eGFR NON AFRICAN AMERICAN > 90 mL/min (90-120)
[2018-01-29 04:00] VITALS: BP 128/67
[2018-01-29 07:47] VITALS: BP 152/72
[2018-01-29 16:00] VITALS: BP 150/72
[2018-01-29 16:27] VITALS: BP 150/72
[2018-01-29 19:53] VITALS: BP 114/74
[2018-01-29 20:35] VITALS: BP 114/74
[2018-01-30] VITALS (7 sets, daily range): BP systolic 103–131; BP diastolic 51–74
[2018-01-30 06:36] LABS: BASOPHILS 0 % (0-2); EOSINOPHILS 0 % (0-7); HEMATOCRIT 32.3 % (36.0-48.0); HEMOGLOBIN 10.9 g/dL (12-16); IMMATURE GRANULOCYTES 0.2 % (0-5); LYMPHOCYTES 8.9 % (15-50); MCH 29.8 pg (26.0-34.0); MCHC 33.7 g/dL (31.0-37.0); MCV 88.3 fL (80.0-100.0); MEAN PLATELET VOLUME 8.7 fL (7.4-10.4); MONOCYTES 8.3 % (2-11); NEUTROPHILS 82.6 % (40-80); PLATELET COUNT 205 10x3/uL (130-400); RBC 3.66 10x6/uL (4.00-5.40); RDW 12.8 % (11.5-14.5)
[2018-01-30 06:39] LABS: WBC 5.2 10x3/uL (4.8-10.8)
[2018-01-30 06:53] LABS: ALBUMIN 2.6 g/dL (3.4-5.0); ALKALINE PHOSPHATASE 52 U/L (46-116); ALT (SGPT) 21 U/L (10-68); CALC OSMOLALITY 261 mosm/kg (275-300); CALCIUM 8.2 mg/dL (8.5-10.1); CARBON DIOXIDE 25.9 mmol/L (21.0-32.0); CHLORIDE - SERUM 97 mmol/L (98-107); CREATININE - SERUM 0.6 mg/dL (0.6-1.3); GLUCOSE 123 mg/dL (74-106); POTASSIUM - SERUM 4.1 mmol/L (3.5-5.1); PROTEIN - SERUM 6.3 g/dL (6.4-8.2); SODIUM 130 mmol/L (136-145); UREA NITROGEN 13 mg/dL (7-18); eGFR NON AFRICAN AMERICAN > 90 mL/min (90-120)
[2018-01-31] VITALS: BP 107/57
[2018-01-31 04:00] VITALS: BP 113/55
[2018-01-31 04:59] LABS: BASOPHILS 0 % (0-2); EOSINOPHILS 3.5 % (0-7); HEMATOCRIT 26.2 % (36.0-48.0); IMMATURE GRANULOCYTES 0.2 % (0-5); LYMPHOCYTES 17.5 % (15-50); MCH 29.5 pg (26.0-34.0); MCHC 33.2 g/dL (31.0-37.0); MCV 88.8 fL (80.0-100.0); MEAN PLATELET VOLUME 8.5 fL (7.4-10.4); NEUTROPHILS 69.8 % (40-80); PLATELET COUNT 196 10x3/uL (130-400); RBC 2.95 10x6/uL (4.00-5.40)
[2018-01-31 05:00] LABS: HEMOGLOBIN 8.7 g/dL (12-16)
[2018-01-31 05:31] LABS: ALBUMIN 2.2 g/dL (3.4-5.0); ALKALINE PHOSPHATASE 47 U/L (46-116); ALT (SGPT) 13 U/L (10-68); CALC OSMOLALITY 262 mosm/kg (275-300); CALCIUM 7.9 mg/dL (8.5-10.1); CARBON DIOXIDE 26.3 mmol/L (21.0-32.0); CHLORIDE - SERUM 97 mmol/L (98-107); CREATININE - SERUM 0.5 mg/dL (0.6-1.3); GLUCOSE 100 mg/dL (74-106); POTASSIUM - SERUM 3.7 mmol/L (3.5-5.1); PROTEIN - SERUM 5.4 g/dL (6.4-8.2); SODIUM 130 mmol/L (136-145); UREA NITROGEN 17 mg/dL (7-18); eGFR NON AFRICAN AMERICAN > 90 mL/min (90-120)
[2018-01-31 09:07] VITALS: BP 134/63
[2018-01-31 13:26] VITALS: BP 118/51
[2018-01-31 16:19] VITALS: BP 100/49
[2018-01-31 20:00] VITALS: BP 115/68
[2018-02-01] VITALS: BP 137/59
[2018-02-01 04:00] VITALS: BP 129/71
[2018-02-01 05:07] LABS: BASOPHILS 0.2 % (0-2); EOSINOPHILS 2.7 % (0-7); HEMATOCRIT 26.9 % (36.0-48.0); IMMATURE GRANULOCYTES 0.2 % (0-5); LYMPHOCYTES 16.4 % (15-50); MCH 29.5 pg (26.0-34.0); MCHC 33.5 g/dL (31.0-37.0); MCV 88.2 fL (80.0-100.0); MEAN PLATELET VOLUME 8.6 fL (7.4-10.4); MONOCYTES 11.3 % (2-11); NEUTROPHILS 69.2 % (40-80); PLATELET COUNT 228 10x3/uL (130-400); RBC 3.05 10x6/uL (4.00-5.40); WBC 4.8 10x3/uL (4.8-10.8)
[2018-02-01 05:45] LABS: ALBUMIN 2.2 g/dL (3.4-5.0); ALKALINE PHOSPHATASE 52 U/L (46-116); ALT (SGPT) 14 U/L (10-68); BILIRUBIN - TOTAL 0.66 mg/dL (0.2-1.3); CALC OSMOLALITY 259 mosm/kg (275-300); CALCIUM 7.9 mg/dL (8.5-10.1); CARBON DIOXIDE 25.4 mmol/L (21.0-32.0); CHLORIDE - SERUM 97 mmol/L (98-107); CREATININE - SERUM 0.5 mg/dL (0.6-1.3); GLUCOSE 90 mg/dL (74-106); POTASSIUM - SERUM 3.7 mmol/L (3.5-5.1); PROTEIN - SERUM 5.5 g/dL (6.4-8.2); SODIUM 129 mmol/L (136-145); UREA NITROGEN 15 mg/dL (7-18); eGFR NON AFRICAN AMERICAN > 90 mL/min (90-120)
[2018-02-01 08:21] VITALS: BP 165/84
[2018-02-01 12:09] VITALS: BP 94/52
[2018-02-01 22:20] VITALS: BP 135/65
[2018-02-02 01:22] VITALS: BP 154/64
[2018-02-02 04:45] VITALS: BP 144/73
[2018-02-02] MEDS ORDERED: ELIQUIS2.5 MG PO (08:37)
[2018-02-02] MEDS ORDERED: HYDROCODONE-APA1 TAB PO (08:38)
[2018-02-02 08:52] LABS: BASOPHILS 0.2 % (0-2); EOSINOPHILS 0.7 % (0-7); HEMATOCRIT 27.1 % (36.0-48.0); IMMATURE GRANULOCYTES 0.3 % (0-5); LYMPHOCYTES 12.7 % (15-50); MCH 28.9 pg (26.0-34.0); MCHC 33.2 g/dL (31.0-37.0); MCV 87.1 fL (80.0-100.0); MEAN PLATELET VOLUME 8.4 fL (7.4-10.4); MONOCYTES 7.6 % (2-11); NEUTROPHILS 78.5 % (40-80); PLATELET COUNT 232 10x3/uL (130-400); RBC 3.11 10x6/uL (4.00-5.40); RDW 12.8 % (11.5-14.5); WBC 5.8 10x3/uL (4.8-10.8)
[2018-02-02 09:02] LABS: CALC OSMOLALITY 260 mosm/kg (275-300); CALCIUM 8.4 mg/dL (8.5-10.1); CARBON DIOXIDE 23.7 mmol/L (21.0-32.0); CHLORIDE - SERUM 97 mmol/L (98-107); CREATININE - SERUM 0.4 mg/dL (0.6-1.3); GLUCOSE 100 mg/dL (74-106); POTASSIUM - SERUM 3.9 mmol/L (3.5-5.1); SODIUM 130 mmol/L (136-145); UREA NITROGEN 13 mg/dL (7-18); eGFR NON AFRICAN AMERICAN > 90 mL/min (90-120)
[2018-02-02 10:38] VITALS: BP 103/44
[2018-02-02 15:04] VITALS: BP 123/69
[2018-02-02 19:08] VITALS: BP 131/54
== END 2018-02-02 19:08 | DRG 481 ==
LOC: D.ER 03:48 → D.MS 05:36 → D.EDHOLD 05:36 → D.MS 14:14
PROVIDERS: Family Medicine; Orthopaedic Surgery
PROC: 0QS736Z Reposition Left Upper Femur with Intramedullary Internal Fixation Device, Percutaneous Approach (ICD-10-PCS; principal; 2018-01-29 10:00)
DX: S72.142A Displaced intertrochanteric fracture of left femur, initial encounter for closed fracture (principal); E87.1 Hypo-osmolality and hyponatremia; D62 Acute posthemorrhagic anemia; X58.XXXA Exposure to other specified factors, initial encounter; M19.90 Unspecified osteoarthritis, unspecified site; M81.0 Age-related osteoporosis without current pathological fracture

== ENCOUNTER 2018-02-02 16:37 | Inpatient (IN) | payer MEDICARE ==
[~2018-02-02] VITALS: Ht 160 cm; Wt 59.0 kg
--- NOTE | ~2018-02-02 | RHP ---
PATIENT: SHANICE SWENSON MEDICAL RECORD: [id number] ACCOUNT: [id number] LOCATION:[facility] : 42 ADMISSION DATE: 02/02/18 REHABILITATION HISTORY AND PHYSICAL EXAMINATION POST ADMISSION PHYSICIAN EXAMINATION DATE OF ADMISSION: 02/02/2018 ADMITTING DIAGNOSES: Left hip fracture, status post gamma nail. HISTORY OF PRESENT ILLNESS: The patient admitted to inpatient rehab for orthopedic reasons, comminuted intertrochanteric hip fracture of the left hip status post gamma nailing. A 77-year-old female patient admitted to the hospital for pain to her hip after falling home. She was found on x-ray to have a left intertrochanteric fracture. Underwent surgery on 01/29/2018 for gamma nailing. She has had postop complications to include acute blood loss anemia, hyponatremia, increased pain, self care deficit, and immobility. She lives at home with her , who is independent with her mobility and ADLs. She is currently set up for max assist for her ADLs and moderate assist to total assist for mobility. She and her plan for her to return home, hopefully get back to her prior level of functioning or improved upon this. COMORBIDITIES: In this patient include acute intertrochanteric fracture of left hip, osteoarthritis, osteoporosis, hyponatremia, anemia, abdominal pain, and constipation. PAST MEDICAL HISTORY: Significant for numbness, tingling, vertigo, restless leg syndrome, hypertension, chronic AFib, pacemaker placement, syncope, aortic valve replacement, chronic cough, osteoporosis, sleep apnea, but does not use CPAP and insomnia. PAST SURGICAL HISTORY: Includes knee surgery times 2, right elbow fracture repair, left wrist fracture repair, bilateral total knees, right ankle ORIF with hardware, aortic valve replacement in 2014, pacemaker placement, back surgery in the past and bunionectomy. ALLERGIES: JR INHIBITORS AND DIPHENHYDRAMINE. CURRENT MEDICATIONS: Include hydrochlorothiazide 12.5 mg daily, aspirin 81 mg daily, trazodone 300 q.h.s., Mirapex 1.5 mg q.h.s., losartan 50 mg b.i.d., hydrocodone 10/325 one tab q.4 hours p.r.n., Eliquis 2.5 mg b.i.d., and polyethylene glycol 17 g in 8 ounces of water daily. HABITS: No current alcohol or tobacco use. FAMILY HISTORY: Noncontributory. SOCIAL HISTORY: The patient hopes to return back home and get back to her prior level of functioning. REVIEW OF SYSTEMS: GENERAL: Does complain of some weakness and fatigue. HEENT: Denies cold, cough, or congestion. CARDIOVASCULAR: Denies chest pain. LUNGS: Denies shortness of breath. Does complain of some pain in her hip. HISTORY AND PHYSICAL [id number] SHANICE SWENSON LABORATORY DATA: White count is 3.8, H&H 8.5 and 25.8 and platelet count was noted to be 260. Sodium 132, potassium 4.3. BUN and creatinine of 15 and 0.6 and blood sugar is noted to be 92. ASSESSMENT: This is a 77-year-old female patient admitted to rehab with a working diagnosis of left hip fracture, status post gamma nailing. The patient has potential to make improvement. We instituted the following multidisciplinary therapies including, but not limited to physical, occupational, respiratory, speech, nutritional services, prosthetics and orthotics. Given her complex condition and risks for more complications, rehabilitation services cannot be provided at a low level of care such as nursing home facility. PLAN: 1. Admit to [facility] for intensive inpatient therapy to include the following disciplines: A. Physical therapy to improve gait, all transfer skills and bed mobility to a modified independent level. B. Occupational therapy to improve activities of daily living to a modified independent level. C. Case management to assist with discharge planning and placement options. D. Nutrition to assist with nutritional needs. E. Rehabilitation nursing to assist in monitoring the patient's underlying medical conditions and to assist with any type of bowel or bladder management. 2. The patient's current medication and medical care will be continued. 3. The patient will be placed on standard fall precautions. 4. Watch her H&H closely. 5. We will discuss this patient during care team staff meeting at noon today. TRANSINT:[id number] Voice Confirmation ID: [id number] DOCUMENT ID: [id number] ELSA notes whether there has been none or any medical/functional change since admission: - No change since preadmission screen. ELSA attests patient continues to be appropriate for IRF: - Continues to be appropriate. VIN MORRELL MD at 0893 CC: [id number] DICTATION DATE: 02/03/18 0851 SLIP DUMPER: 02/03/18 1240 DIS IN 02/09/18 [facility] [address] [place] [id number]
[~2018-02-02 16:37] MED LIST changes: +ELIQUIS2.5 MG PO
[2018-02-02 19:48] VITALS: BP 139/78
[2018-02-02 19:56] VITALS: BP 104/46; BP 139/78; BMI 23.0; BMI 37.6
[2018-02-03 06:49] LABS: BASOPHILS 0.3 % (0-2); EOSINOPHILS 2.9 % (0-7); HEMATOCRIT 25.8 % (36.0-48.0); HEMOGLOBIN 8.7 g/dL (12-16); IMMATURE GRANULOCYTES 0.8 % (0-5); LYMPHOCYTES 17.1 % (15-50); MCH 29.6 pg (26.0-34.0); MCHC 33.7 g/dL (31.0-37.0); MCV 87.8 fL (80.0-100.0); MEAN PLATELET VOLUME 8.5 fL (7.4-10.4); NEUTROPHILS 62.9 % (40-80); PLATELET COUNT 260 10x3/uL (130-400); RBC 2.94 10x6/uL (4.00-5.40); RDW 13.1 % (11.5-14.5)
[2018-02-03 06:54] LABS: WBC 3.8 10x3/uL (4.8-10.8)
[2018-02-03 07:12] LABS: CALC OSMOLALITY 265 mosm/kg (275-300); CALCIUM 8.3 mg/dL (8.5-10.1); CARBON DIOXIDE 26.4 mmol/L (21.0-32.0); CHLORIDE - SERUM 98 mmol/L (98-107); CREATININE - SERUM 0.6 mg/dL (0.6-1.3); GLUCOSE 92 mg/dL (74-106); POTASSIUM - SERUM 4.3 mmol/L (3.5-5.1); SODIUM 132 mmol/L (136-145); UREA NITROGEN 15 mg/dL (7-18); eGFR NON AFRICAN AMERICAN > 90 mL/min (90-120)
[2018-02-03 13:42] VITALS: Ht 160 cm; Wt 59.0 kg
[2018-02-05 06:09] LABS: BASOPHILS 0.3 % (0-2); EOSINOPHILS 3.3 % (0-7); HEMOGLOBIN 8.3 g/dL (12-16); IMMATURE GRANULOCYTES 1.4 % (0-5); LYMPHOCYTES 21.1 % (15-50); MCH 29.1 pg (26.0-34.0); MCHC 33.2 g/dL (31.0-37.0); MCV 87.7 fL (80.0-100.0); MEAN PLATELET VOLUME 8.1 fL (7.4-10.4); MONOCYTES 14.2 % (2-11); NEUTROPHILS 59.7 % (40-80); RBC 2.85 10x6/uL (4.00-5.40); RDW 13.2 % (11.5-14.5); WBC 3.6 10x3/uL (4.8-10.8)
[2018-02-05 06:11] LABS: PLATELET COUNT 324 10x3/uL (130-400)
[2018-02-05 06:27] LABS: CALC OSMOLALITY 265 mosm/kg (275-300); CALCIUM 8.4 mg/dL (8.5-10.1); CARBON DIOXIDE 25.3 mmol/L (21.0-32.0); CHLORIDE - SERUM 99 mmol/L (98-107); CREATININE - SERUM 0.5 mg/dL (0.6-1.3); GLUCOSE 88 mg/dL (74-106); SODIUM 133 mmol/L (136-145); UREA NITROGEN 14 mg/dL (7-18); eGFR NON AFRICAN AMERICAN > 90 mL/min (90-120)
[2018-02-05 08:00] VITALS: BP 133/63
[2018-02-05 19:00] VITALS: BP 124/53
[2018-02-06 09:27] VITALS: BP 147/58
[2018-02-06 20:24] VITALS: BP 134/59
[2018-02-07 08:56] VITALS: BP 134/73
[2018-02-07 19:43] VITALS: BP 127/55
[2018-02-08 05:58] LABS: BASOPHILS 0.3 % (0-2); EOSINOPHILS 3.4 % (0-7); HEMATOCRIT 30.1 % (36.0-48.0); HEMOGLOBIN 9.7 g/dL (12-16); IMMATURE GRANULOCYTES 1.1 % (0-5); LYMPHOCYTES 23.5 % (15-50); MCH 28.2 pg (26.0-34.0); MCHC 32.2 g/dL (31.0-37.0); MCV 87.5 fL (80.0-100.0); MEAN PLATELET VOLUME 7.7 fL (7.4-10.4); MONOCYTES 11.5 % (2-11); NEUTROPHILS 60.2 % (40-80); PLATELET COUNT 377 10x3/uL (130-400); RBC 3.44 10x6/uL (4.00-5.40); RDW 15.4 % (11.5-14.5); WBC 3.6 10x3/uL (4.8-10.8)
[2018-02-08 06:13] LABS: CALC OSMOLALITY 270 mosm/kg (275-300); CALCIUM 8.5 mg/dL (8.5-10.1); CARBON DIOXIDE 26.9 mmol/L (21.0-32.0); CHLORIDE - SERUM 101 mmol/L (98-107); CREATININE - SERUM 0.5 mg/dL (0.6-1.3); GLUCOSE 85 mg/dL (74-106); POTASSIUM - SERUM 3.9 mmol/L (3.5-5.1); SODIUM 136 mmol/L (136-145); UREA NITROGEN 12 mg/dL (7-18); eGFR NON AFRICAN AMERICAN > 90 mL/min (90-120)
[2018-02-08 08:00] VITALS: BP 154/66
[2018-02-08 20:51] VITALS: BP 143/79
[2018-02-09 07:59] VITALS: BP 144/78
[2018-02-09] MEDS ORDERED: HYDROCODONE-APA1 TAB PO (10:04)
== END 2018-02-09 14:44 | disposition home health service (06) | DRG 560 ==
LOC: D.REHAB 16:37
PROVIDERS: Emergency Medicine
DX: S72.092D Other fracture of head and neck of left femur, subsequent encounter for closed fracture with routine healing (principal); E87.1 Hypo-osmolality and hyponatremia; M19.90 Unspecified osteoarthritis, unspecified site; M81.0 Age-related osteoporosis without current pathological fracture; D64.9 Anemia, unspecified; R10.9 Unspecified abdominal pain; K59.00 Constipation, unspecified; I48.2 Chronic atrial fibrillation; Z95.0 Presence of cardiac pacemaker; I35.0 Nonrheumatic aortic (valve) stenosis; R55 Syncope and collapse

== ENCOUNTER → 2018-08-02 08:41 | Outpatient (CLI) | payer OTHER ==
[2018-02-03 13:42] VITALS: BMI 23.0
== END | disposition home or self-care (01) ==
LOC: D.CT 08:30
DX: R19.00 Intra-abdominal and pelvic swelling, mass and lump, unspecified site (principal)

== ENCOUNTER → 2018-10-11 14:27 | Outpatient (CLI) | payer OTHER ==
[2018-02-03 13:42] VITALS: BMI 23.0
== END | disposition home or self-care (01) ==
LOC: D.RAD 14:27
DX: R06.09 Other forms of dyspnea (principal)

== ENCOUNTER → 2018-10-25 11:41 | Outpatient (CLI) | payer OTHER ==
[2018-02-03 13:42] VITALS: BMI 23.0
[~2018-10-25 11:41] MED LIST changes: +ASCORBIC ACID500 MG PO; +COREG12.5 MG PO; +MICARDIS40 MG PO
== END | disposition home or self-care (01) ==
LOC: D.HCCARDIO 10-21 09:00
DX: R06.02 Shortness of breath (principal); I10 Essential (primary) hypertension

== ENCOUNTER 2018-11-01 11:15 | Outpatient (CLI) | payer OTHER ==
[~2018-11-01] VITALS: Ht 152.4 cm; Wt 56.4 kg
--- NOTE | ~2018-11-01 | HEMODYNAMI ---
PATIENT:SHANICE SWENSON MEDICAL RECORD: [id number] : 44 LOCATION:[facility] ADMISSION DATE: 11/01/18 Generatedon:11/01/201814:47 Patient name: SHANICE SWENSON Patient #: [id number] : 1940 Date of study: 11/01/2018 Page: Of Hemodynamic Procedure Report Patient Data Patient Demographics Procedure consent was obtained First Name: SHANICE Gender: Female Last Name: MESSI : 1940 [facility] Initial: Sage Age: 78 year(s) Patient #: [id number] Race: SSN: [id number] Additional ID: [id number] Contact details [address]: [address] [place] [address] [place] State: [place] City: [place] Zip code: [address] Past Medical History Allergies Allergen Reaction Date Comments Reported Other allergy 12/16/2016 benadryl JR inhibitors 09/10/2017 Other allergy 09/10/2017 Benadryl Admission Admission Data Admission Date: 11/01/2018 Admission Time: 11:15 Procedure Procedure Types Cath Procedure Diagnostic Procedure LHC Coronaries only Aortic Root Angiography Procedure Description Procedure Date Procedure Date: 11/01/2018 Procedure Start Time: 14:20 Procedure End Time: 14:43 Procedure Staff Name Function Balbir Amos MD Performing Physician Armando Kc RN Nurse Moustapha Miller RT Scrub Marco Antonio Gilbert RT Monitor Procedure Data Cath Procedure Fluoroscopy Diagnostic fluoroscopy Total fluoroscopy Time: 2.8 time: 2.8 min min Diagnostic fluoroscopy Total fluoroscopy dose: 441 dose: 441 mGy mGy Contrast Material Contrast Material Type Amount (ml) Isovue 300 95 Entry Location Entry Primary Successful Side Size Upsize Upsize Entry Closure Succes sful Closure Location (Fr) 1 (Fr) 2 (Fr) Remarks Device Remarks Femoral Right 5 Fr Exoseal artery Estimated blood loss: 10 ml Diagnostic catheters Device Type Used For End Catheter Placement MULTIPACK JL 4.0 5Fr Procedure catheter MULTIPACK 3DRC 5Fr Procedure catheter MULTIPACK Pigtail 5 Fr Procedure catheter Procedure Complications No complications Procedure Medications Medication Administration Route Dosage Oxygen etCO2 Nasal cannula 2 l/min Heparin Flush Bag added to field 2 bags (1000units/500ml NS) 0.9% NaCl I.V. 100 ml/hr Lidocaine 2% added to field 20 Fentanyl I.V. 50 mcg Versed I.V. 1 mg Fentanyl I.V. 50 mcg Versed I.V. 1 mg Fentanyl I.V. 50 mcg Fentanyl I.V. 50 mcg Hemodynamics Rest Heart Rate: 75 (bpm) Pressure Samples Time Site Value (mmHg) Purpose Heart Use Rate(bpm) 14:26 AO 139/71(84) Snapshot 75 Snapshots Pre Cath Intra NCS Post Cath Vital Signs Time Heart Resp SPO2 etCO2 NIBP (mmHg) Rhythm Pain Sedation Rate (ipm) (%) (mmHg) Status Level (bpm) 14:06:19 76 16 100 30.2 156/86(120) NSR 0 (11) 10(A) , No pain 14:10:35 75 17 99 32.4 149/79(106) NSR 0 (11) 10(A) , No pain 14:14:49 75 17 99 35.5 141/78(102) NSR 0 (11) 10(A) , No pain 14:19:01 75 16 99 36.2 135/74(102) NSR 0 (11) 10(A) , No pain 14:23:04 75 16 98 32.4 144/87(112) NSR 0 (11) 10(A) , No pain 14:27:14 75 17 98 37.7 148/80(113) NSR 0 (11) 10(A) , No pain 14:31:28 75 16 98 39.2 151/75(113) NSR 0 (11) 10(A) , No pain 14:35:42 75 17 98 40.7 142/76(104) NSR 0 (11) 10(A) , No pain 14:39:52 75 17 98 37.7 142/79(102) NSR 0 (11) 10(A) , No pain 14:44:04 75 17 97 23.4 156/77(104) NSR 0 (11) 10(A) , No pain Medications Time Medication Route Dose Verified Delivered Reason Notes Effe ctiveness by by 14:05:11 Oxygen etCO2 2 Balbir Armando Per Nasal l/min Dandre Kc RN physician cannula 14:05:20 Heparin Flush added 2 Balbir Armando used for Bag to bags Dandre Kc RN procedure (1000units/500ml field NS) 14:05:27 0.9% NaCl I.V. 100 Balbir Armando Per ml/hr Dandre Kc RN physician 14:05:35 Lidocaine 2% added 20ml Balbir Armando used for to vial Dandre Kc RN procedure field 14:18:40 Fentanyl I.V. 50 Balbir Armando for mcg Dandre Kc RN sedation 14:18:46 Versed I.V. 1 mg Balbir Armando for Dandre Kc RN sedation 14:23:02 Fentanyl I.V. 50 Balbir Armando for mcg Dandre Kc RN sedation 14:23:07 Versed I.V. 1 mg Balbir Armando for Dandre Kc RN sedation 14:26:06 Fentanyl I.V. 50 Balbir Armando for mcg Dandre Kc RN sedation 14:28:22 Fentanyl I.V. 50 Balbir Armando for mcg Dandre Kc RN sedation Procedure Log Time Note 13:35:20 Moustapha Miller RT(R) sent for patient. Start room use. 13:59:21 Time tracking: Regular hours (M-F 7:00 - 5:00) 13:59:24 Plan of Care:Hemodynamics will remain stable., Cardiac rhythm will remain stable., Comfort level will be maintained., Respiratory function will remain adequate., Patient/ family verbilizes understanding of procedure., Procedure tolerated without complication., Recovers from procedure without complications.. 13:59:49 Patient received from Pre/Post Procedure Room to [facility] 2 Alert and oriented. Tansferred to table in Supine position. 13:59:50 Warm blankets applied, and nelson hugger turned on for patient comfort. 13:59:51 Correct patient and procedure confirmed by team. 13:59:52 Signed procedure consent form obtained from patient. 13:59:52 ECG and BP/O2 sat monitors applied to patient. 14:05:11 Oxygen 2 l/min etCO2 Nasal cannula was administered by Armando Kc RN; Per physician; 14:05:12 Vital chart was started 14:05:20 Heparin Flush Bag (1000units/500ml NS) 2 bags added to field was administered by Armando Kc RN; used for procedure; 14:05:27 0.9% NaCl 100 ml/hr I.V. was administered by Armando Kc RN; Per physician; 14:05:35 Lidocaine 2% 20ml vial added to field was administered by Armando Kc RN; used for procedure; 14:12:30 Baseline sample Acquired. 14:12:34 Rhythm: sinus rhythm 14:12:35 Full Disclosure recording started 14:13:21 H&P Date Dictated: 10/11/2018 Within 30 days and on chart., H&P Addendum completed by physician on day of procedure. (MUST COMPLETE FOR ALL OUTPATIENTS). 14:13:22 Pre-procedure instructions explained to patient. 14:13:22 Pre-op teaching completed and patient verbalized understanding. 14:13:29 Family in patients room. 14:13:30 Patient NPO since Midnight. 14:13:31 Is the patient allergic to Iodine/contrast media? No. 14:13:35 Is patient on blood thinner?No 14:13:37 Patient diabetic? No. 14:13:39 Previous problem with sedation/anesthesia? No ? 14:13:40 Snore? Yes 14:13:41 Sleep apnea? No 14:13:42 Deviated septum? No 14:13:42 Opens mouth fully? Yes 14:13:44 Sticks out tongue? Yes 14:13:48 Airway obstruction? No ? 14:13:54 Dentures? Yes partial IN 14:13:58 Pre procedure: right dorsailis pedis pulse 1+ Palpable, but thready & weak; easily obliterated 14:14:25 RADIAL TOO SMALL. 14:14:30 Patient pain scale 0/10 ?. 14:14:38 IV patent on arrival in left forearm with 0.9% NaCl at [facility]. 14:14:40 Lab results completed and on chart. 14:14:43 Right groin area was prepped with chlora-prep and draped in sterile fashion 14:14:44 Alarms reviewed by R. N. 14:14:44 Sharps counted by scrub and verified by R.N. 14:14:48 --------ALL STOP TIME OUT------ 14:14:49 Final Timeout: patient, procedure, and site verified with staff and physician. All members of the team are in agreement. 14:14:51 Right groin site verified by team. 14:14:53 Physical assessment completed. ASA score P 2 - A patient with mild systemic disease as per Balbir Amos MD. 14:14:59 Sedation plan: IV Moderate Sedation Medication:Versed, Fentanyl 14:18:31 Use device set Femoral Dx 14:18:32 Tegaderm 4 x 4 (1626W) opened to sterile field. 14:18:33 ACIST Manifold (40050) opened to sterile field. 14:18:34 ACIST Hand Control (56120) opened to sterile field. 14:18:35 ACIST Syringe (17672) opened to sterile field. 14:18:36 Bag Decanter (2002S) opened to sterile field. 14:18:36 Medline Cath Pack ([id number]) opened to sterile field. 14:18:36 DIAGNOSTIC WIRE .035 260cm J wire (173220) opened to sterile field. 14:18:38 DIAGNOSTIC Multipack 5Fr catheter set (PX8982) opened to sterile field. 14:18:39 SHEATH 5FR [place] (XFI149) opened to sterile field. 14:18:40 Fentanyl 50 mcg I.V. was administered by Armando Kc RN; for sedation; 14:18:46 Versed 1 mg I.V. was administered by Armando Kc RN; for sedation; 14:20:27 Procedure started. 14:20:31 Local anesthetic to right femoral artery with Lidocaine 2% by Balbir Amos MD.INITIAL ACCESS ONLY 14:23:02 Fentanyl 50 mcg I.V. was administered by Armando Kc RN; for sedation; 14:23:07 Versed 1 mg I.V. was administered by Armando Kc RN; for sedation; 14:23:15 A 5 Fr sheath was inserted into the Right Femoral artery 14:23:31 A MULTIPACK JL 4.0 5Fr catheter was advanced over the wire and used for Procedure. 14:26:06 Fentanyl 50 mcg I.V. was administered by Armando Kc RN; for sedation; 14:26:12 LCA angiography performed. 14:28:13 Catheter removed. 14:28:17 A MULTIPACK 3DRC 5Fr catheter was advanced over the wire and used for Procedure. 14:28:22 Fentanyl 50 mcg I.V. was administered by Armando Kc RN; for sedation; 14:28:24 RCA angiography performed. 14:28:33 Catheter removed. 14:29:52 A MULTIPACK Pigtail 5 Fr catheter was advanced over the wire and used for Procedure. 14:30:50 Aortic Root visualized 14:30:53 Injector settings: Ml/sec: 15, Volume: 30, 14:40:05 Catheter removed. 14:40:07 EXOSEAL 5Fr (EX500) opened to sterile field. 14:40:16 Sheath removed intact; hemostasis achieved with Exoseal to the Right Femoral artery. 14:40:19 Procedure ended.(Physican Out) 14:40:39 Fluoroscopy time 02.80 minutes. 14:40:42 Flurop Dose total: 441 14:40:42 Fluoroscopy dose: 441 mGy 14:40:45 Contrast amount:Isovue 300 95ml. 14:40:47 Sharps counted by scrub and verified by R.N. 14:40:48 Insertion/operative site no bleeding no hematoma. 14:40:51 Post-op/insertion site Right Femoral artery dressed using a 4 x 4 and Tegaderm. 14:40:52 Post Procedure Pulses reassessed and unchanged 14:40:55 Post-procedure physical assessment completed. ASA score P 2 - A patient with mild systemic disease as per Balbir Amos MD. 14:40:57 Post procedure rhythm: unchanged. 14:41:00 Estimated blood loss: 10 ml 14:41:01 Post procedure instruction explained to patient.Patient verbalizes understanding. 14:41:02 Patient needs reinforcement of post procedure teaching. 14:41:11 Procedure type changed to Cath procedure, Diagnostic procedure, LHC, Coronaries only, Aortic Root Angiography 14:42:27 Procedure and supply charges have been captured, reviewed, submitted and are correct. 14:43:14 Procedure Complication : No complications 14:43:17 Vital chart was stopped 14:43:17 See physician's report for complete and final results. 14:43:19 Report given to Pre/Post Procedure Room. 14:43:23 Patient transfered to Pre/Post Procedure Room with Stretcher. 14:43:25 Procedure ended. 14:43:25 Full Disclosure recording stopped 14:45:22 End room use (Document Last) Device Usage Item Name Manufacture Quantity Catalog Hospital Part Current Minimal L ot# / Number Charge Number Stock Stock Serial# Code Tegaderm 4 3M 1 1626W [id number] [id number] [id number] 5 x 4 (1626W) ACIST Acist 1 58303 346459 866334 667357 5 Manifold Medical (73859) Systems Inc ACIST Hand Acist 1 22513 735306 132692 311356 5 Control Medical (26724) Systems Inc ACIST Acist 1 23168 945987 424181 509363 20 Syringe Medical (12328) Systems Inc Bag Microtek 1 2001S 329023 94550 278926 5 Decanter Medical Inc. (2001S) Medline Medline 1 [id number] 757843 74440 840310 5 Cath Pack ([id number]) DIAGNOSTIC St Gurvinder 1 613080 008313 902776 482222 30 WIRE .035 260cm J wire (721270) DIAGNOSTIC Cardinal 1 KF1365 154869 52436 292374 30 Multipack Health 5Fr catheter set (GJ3564) SHEATH 5FR Terumo 1 JHP777 151559 578966 737194 5 [place] (ALO883) MULTIPACK Cardinal 1 018123 5 JL 4.0 5Fr Health catheter MULTIPACK Cardinal 1 852277 5 3DRC 5Fr Health catheter MULTIPACK Cardinal 1 227913 5 Pigtail 5 Health Fr catheter EXOSEAL 5Fr Cardinal 1 EX500 376600 957673 557999 10 (EX500) Health Signature Audit [place] Stage Time Signature Unsigned Intra-Procedure 11/01/2018 Marco Antonio Gilbert 2:47:47 PM RT(R) Signatures Monitor : Marco Antonio Gilbert RT Signature : Date : Time : [id number] [place] [address]
[~2018-11-01 11:15] MED LIST changes: -ASCORBIC ACID500 MG PO; -COREG12.5 MG PO; -MICARDIS40 MG PO
[2018-11-01] MEDS ORDERED: MICARDIS40 MG PO (11:53)
[2018-11-01] MEDS ORDERED: COREG12.5 MG PO (11:54)
[2018-11-01] MEDS ORDERED: ULTRAM50 MG PO (11:54)
[2018-11-01] MEDS ORDERED: ASCORBIC ACID500 MG PO (11:57)
[2018-11-01 12:05] VITALS: BP 168/78; Ht 152.4 cm; Wt 56.4 kg
[2018-11-01 12:21] LABS: BASOPHILS 0.3 % (0-2); EOSINOPHILS 2.6 % (0-7); HEMATOCRIT 39.4 % (36.0-48.0); HEMOGLOBIN 13.2 g/dL (12-16); LYMPHOCYTES 18.8 % (15-50); MCH 28.1 pg (26.0-34.0); MCHC 33.5 g/dL (31.0-37.0); MCV 83.8 fL (80.0-100.0); MEAN PLATELET VOLUME 8.4 fL (7.4-10.4); MONOCYTES 7.7 % (2-11); NEUTROPHILS 70.6 % (40-80); RDW 13.8 % (11.5-14.5); WBC 3.5 10x3/uL (4.8-10.8)
[2018-11-01 12:22] LABS: CALC OSMOLALITY 265 mosm/kg (275-300); CALCIUM 8.8 mg/dL (8.5-10.1); CARBON DIOXIDE 27.2 mmol/L (21.0-32.0); CHLORIDE - SERUM 96 mmol/L (98-107); CREATININE - SERUM 0.6 mg/dL (0.6-1.3); GLUCOSE 98 mg/dL (74-106); POTASSIUM - SERUM 4.1 mmol/L (3.5-5.1); SODIUM 132 mmol/L (136-145); UREA NITROGEN 15 mg/dL (7-18); eGFR NON AFRICAN AMERICAN > 90 mL/min (90-120)
[2018-11-01 12:23] LABS: PLATELET COUNT 218 10x3/uL (130-400)
--- NOTE | 2018-11-01 15:17 | NUR ---
1500 RECEIVED PT FROM WEATHER STRIPPER, PT IS ALERT, DENIES ANY C/O PAIN OR NAUSEA. DRESSING IS CDI TO RIGHT GROIN, AREA IS SOFT AND NONTENDER. PEDAL PULSES PALPABLE. VSS. HOB IS FLAT.
--- NOTE | 2018-11-01 15:22 | NUR ---
HOB IS FLAT, DRESSING TO RIGHT GROIN IS CDI, AREA IS SOFT AND NONTENDER. PEDAL PULSES PALPABLE. VSS. CALL LIGHT IN REACH.
--- NOTE | 2018-11-01 16:07 | NUR ---
PT ALERT, DENIES ANY C/O. DRESSING TO RIGHT GROIN IS CDI, AREA IS SOFT AND NONTENDER. PEDAL PULSES PALPABLE. HOB IS FLAT. VSS, AT BEDSIDE. CALL LIGHT IN REACH.
--- NOTE | 2018-11-01 16:44 | NUR ---
HOB ELEVATED 30 DEGREES AND SANDWICH SERVED. DRESING CDI, PULSES PALPABLE, PT ALERT AND DENIES ANY C/O.
--- NOTE | 2018-11-01 17:55 | NUR ---
1700 HOB FULLY ELEVATED, DRESSING IS CDI. PULSES PALPABLE. 1720 IV DC'D WITH CATH INTACT AND PT DRESSING FOR DC WITH ASSIST. DRESSING REMAINS CDI TO RIGHT GROIN. 1730 ASSISTED PT TO THE BATHROOM VIA WC, PT HAS VOIDED QS. DC INSTRUCTIONS REVIEWED WITH PT AND WHO VERBALIZE UNDERSTANDING. PT ESCORTED TO PRIVATE AUTO VIA WC BY NURSE WITH DRIVING HER HOME.
== END 2018-11-01 17:30 | disposition home or self-care (01) ==
LOC: D.CATH 11:15
PROVIDERS: Internal Medicine Cardiovascular Disease
DX: I20.9 Angina pectoris, unspecified (principal); R94.30 Abnormal result of cardiovascular function study, unspecified

== ENCOUNTER → 2018-11-10 09:14 | Outpatient (CLI) | payer OTHER ==
[2018-11-01 12:05] VITALS: BMI 24.2
[~2018-11-10 09:14] MED LIST changes: +ASCORBIC ACID500 MG PO; +COREG12.5 MG PO; +HYDROCODON-ACE1 EA10 PO; +MICARDIS40 MG PO
== END | disposition home or self-care (01) ==
LOC: D.RT 09:14
DX: R06.09 Other forms of dyspnea (principal)

== ENCOUNTER 2018-11-18 06:04 | Day surgery (SDC) | payer OTHER ==
[2018-11-17 09:44] LABS: HEMATOCRIT 38.4 % (36.0-48.0); MCHC 33.9 g/dL (31.0-37.0); MCV 82.6 fL (80.0-100.0); MEAN PLATELET VOLUME 8.4 fL (7.4-10.4); RBC 4.65 10x6/uL (4.00-5.40); RDW 13.8 % (11.5-14.5)
[2018-11-17 09:48] LABS: CALC OSMOLALITY 270 mosm/kg (275-300); CALCIUM 8.6 mg/dL (8.5-10.1); CARBON DIOXIDE 27.5 mmol/L (21.0-32.0); CHLORIDE - SERUM 98 mmol/L (98-107); CREATININE - SERUM 0.7 mg/dL (0.6-1.3); GLUCOSE 84 mg/dL (74-106); POTASSIUM - SERUM 4.1 mmol/L (3.5-5.1); SODIUM 135 mmol/L (136-145); UREA NITROGEN 18 mg/dL (7-18); eGFR NON AFRICAN AMERICAN 86 mL/min (90-120)
[~2018-11-18] VITALS: Ht 162.6 cm; Wt 58.5 kg
[~2018-11-18 06:04] MED LIST changes: -HYDROCODON-ACE1 EA10 PO
[2018-11-18 06:46] LABS: HCG URINE NEGATIVE (NEGATIVE)
[2018-11-18 06:59] VITALS: BP 172/88; Ht 162.6 cm; Wt 58.5 kg
[2018-11-18] MEDS ORDERED: HYDROCODON-ACE1 EA10 PO (08:35)
--- NOTE | 2018-11-18 09:30 | NUR ---
REC'D FROM RR. FAMILY AT BEDSIDE. DRESSING CDI TO LEFT GROIN. ICE WATER BROUGHT TO PATIENT.
--- NOTE | 2018-11-18 10:00 | NUR ---
FL TRAY SERVED TO PATIENT. FAMILY AT BEDSIDE. AMBUALTED TO BATHROOM AND VOIDED WITHOUT DIFFICULTY. ICE PACK BROUGHT TO PT.
--- NOTE | 2018-11-18 10:25 | NUR ---
TOLERATED DIET. IV DC'D WITH CATHETER INTACT. WRITTEN AND VERBAL DC INST GIVEN TO PT ALONG WITH RX. VERBALIZED UNDERSTANDING.
--- NOTE | 2018-11-18 10:45 | NUR ---
DC'D HOME WITH FAMILY VIA PRIVATE VEHICLE. TAKEN TO VEHICLE VIA WC. STABLE AT TIME OF DC.
--- NOTE | 2018-12-09 09:41 | OP ---
PATIENT NAME: SHANICE SWENSON MEDICAL RECORD: [id number] :44 LOCATION:[facility] ADMISSION DATE: SURGEON: RUEL DUNNE MD DATE OF OPERATION: 11/18/2018 PREOPERATIVE DIAGNOSES: 1. Left inguinal hernia. 2. Hypertension. 3. Valvular heart disease. POSTOPERATIVE DIAGNOSES: 1. Left inguinal hernia. 2. Hypertension. 3. Valvular heart disease. PROCEDURE: Left inguinal hernia repair with medium PHS mesh. SURGEON: Ruel Dunne MD REPORT OF PROCEDURE: The patient's left groin was prepped and draped in sterile fashion. An oblique incision was made above the inguinal ligament. Electrocautery was used to dissect through the subcutaneous tissues to the external oblique fascia. This fascia was incised with electrocautery up to the external ring. The round ligament was elevated and this was high ligated on each end using 3-0 silks. The patient had a direct fat-containing hernia defect. This defect was freed up from the surrounding tissues and pushed back into the abdominal cavity. The preperitoneal space of Retzius was opened up and a medium PHS mesh was inserted. This mesh was sutured down on all 4 sides using multiple interrupted 0 Vicryls. The patient had the ilioinguinal nerve and this was high ligated. The wound was then irrigated out with normal saline and care was taken to assure there was no sign of any bleeding. The external oblique fascia was closed with running 2-0 Vicryl, Milvia's was closed with interrupted 3-0 Vicryl, and the skin was closed with running subcutaneous 5-0 Monocryl. A 10 mL of 0.25% Marcaine with epinephrine was infused into the surrounding tissues. The wound was dressed appropriately. COMPLICATIONS: None. CONDITION: Stable. ANESTHESIA: General endotracheal and local. BLOOD LOSS: Minimal. TRANSINT:[id number] Voice Confirmation ID: [id number] DOCUMENT ID: [id number] RUEL DUNNE MD at 0941 CC: APRIL SALDANA DO [id number] DICTATION DATE: 11/18/18837 OIL HEATER INSTALLER: 11/18/18937 [facility] 11/18/18 [place] [address]
== END 2018-11-18 10:45 | disposition home or self-care (01) ==
LOC: D.OPS 06:04
PROVIDERS: Anesthesiology; Surgery
DX: K40.90 Unilateral inguinal hernia, without obstruction or gangrene, not specified as recurrent (principal); I10 Essential (primary) hypertension; I38 Endocarditis, valve unspecified; Z01.812 Encounter for preprocedural laboratory examination

== ENCOUNTER → 2018-12-08 08:00 | Outpatient (CLI) | payer OTHER ==
[2018-11-18 06:59] VITALS: BMI 22.2
[~2018-12-08 08:00] MED LIST changes: +HYDROCODON-ACE1 EA10 PO
== END | disposition home or self-care (01) ==
LOC: D.US 12-02 08:10
DX: K40.90 Unilateral inguinal hernia, without obstruction or gangrene, not specified as recurrent (principal)

== ENCOUNTER 2018-12-14 11:08 | Outpatient (CLI) | payer OTHER ==
[~2018-12-14] VITALS: Ht 162.6 cm; Wt 59.5 kg
--- NOTE | ~2018-12-14 | HEMODYNAMI ---
PATIENT:SHANICE SWENSON MEDICAL RECORD: [id number] : 44 LOCATION:[facility] ADMISSION DATE: 12/14/18 Generatedon:12/14/201813:21 Patient name: SHANICE SWENSON Patient #: [id number] : 1940 Date of study: 12/14/2018 Page: Of Hemodynamic Procedure Report Patient Data Patient Demographics Procedure consent was obtained First Name: SHANICE Gender: Female Last Name: MESSI : 1940 [facility] Initial: Sage Age: 78 year(s) Patient #: [id number] Race: SSN: [id number] Additional ID: [id number] Contact details Address: [address] [place] [address] [place] State: [place] City: [place] Zip code: [address] Past Medical History Allergies Allergen Reaction Date Comments Reported Other allergy 12/16/2016 benadryl JR inhibitors 09/10/2017 Other allergy 09/10/2017 Benadryl Other allergy 12/14/2018 JR Inhibitors, Benadryl Admission Admission Data Admission Date: 12/14/2018 Admission Time: 11:08 Admit Source: Other Weight (lbs.): 131.26 Weight (kg.): 59.54 Lab Results Lab Result Date: 12/14/2018 Lab Result Time: 11:25 Biochemistry Name Units Result Min Max BUN mg/dl 19 --(----)*- 7 18 Creatinine mg/dl 0.5 -*(----)-- 0.6 1.3 CBC Name Units Result Min Max Hematocrit % 39.5 -*(----)-- 42 54 Hemoglobin g/dl 13 -*(----)-- 13.5 17.5 Procedure Procedure Types Cath Procedure Diagnostic Procedure ADOLFO Procedure Description Procedure Date Procedure Date: 12/14/2018 Procedure Start Time: 13:05 Procedure End Time: 13:18 Procedure Staff Name Function Raciel oRbison MD Performing Physician Moustapha Mliler RT Monitor Katlyn Roque RN Nurse David Rankin MD Additional personnel Ricky Hope Fisheries Director Armando Kc RN Quill Worker Procedure Data Cath Procedure Fluoroscopy Diagnostic fluoroscopy Total fluoroscopy Time: 0 time: 0 min min Diagnostic fluoroscopy Total fluoroscopy dose: 0 dose: 0 mGy mGy Contrast Material Contrast Material Type Amount (ml) Isovue 300 0 Estimated blood loss: 0 ml Procedure Complications No complications Procedure Medications Medication Administration Route Dosage 0.9% NaCl I.V. 100 ml/hr Oxygen etCO2 Nasal cannula 2 l/min Hurricaine [place] P.O. 2 Sprays Refer to Anesthesia Notes for Sedation Medications Hemodynamics Rest HGB: 13 (g/dl) Heart Rate: 79 (bpm) Snapshots Pre Cath Intra NCS Post Cath Vital Signs Time Heart Resp SPO2 etCO2 NIBP (mmHg) Rhythm Pain Sedation Rate (ipm) (%) (mmHg) Status Level (bpm) 13:02:11 79 21 98 32 181/98(150) Paced 0 (11) 10(A) , No pain 13:07:04 75 27 98 30 149/82(117) Paced 0 (11) 5(A) , No pain 13:11:24 77 20 99 0 151/81(108) Paced 0 (11) 5(A) , No pain 13:15:44 75 20 99 0 150/76(107) Paced 0 (11) 10(A) , No pain Medications Time Medication Route Dose Verified Delivered Reason Notes Effectiv eness by by 13:02:53 0.9% NaCl I.V. 100 Raciel Potts used for ml/hr [facility] Rojel[facility] Roque procedure MD LIANG 13:03:01 Oxygen etCO2 2 Raciel Lopeza used for Nasal l/min [facility] Rojel[facility] Ro[facility] procedure cannula MD LIANG 13:03:13 Hurricaine P.O. 2 Raciel Katlyn used for [place] Sprays [facility] Rojelio Roque procedure MD LIANG 13:03:20 Refer to Raciel Potts Anesthesia [facility] Rojelio Roque Notes for MD LIANG Sedation Medications Procedure Log Time Note 12:34:11 Informed consent obtained and on chart 12:34:16 Admit Source: Other 12:37:45 Time tracking: Regular hours (M-F 7:00 - 5:00) 12:37:49 Plan of Care:Hemodynamics will remain stable., Cardiac rhythm will remain stable., Comfort level will be maintained., Respiratory function will remain adequate., Patient/ family verbilizes understanding of procedure., Procedure tolerated without complication., Recovers from procedure without complications.. 12:38:28 H&P Date Dictated: 12/09/2018 Within 30 days and on chart., H&P Addendum completed by physician on day of procedure. (MUST COMPLETE FOR ALL OUTPATIENTS). 12:40:29 Patient Weight : 131.26 lbs 12:42:55 Patient allergic to Other allergyACE Inhibitors, Benadryl 12:48:08 [place] Contact Lens Flashing Puncher present for ADOLFO. 12:48:30 Armando Kc RN sent for patient. Start room use. 12:55:41 Patient arrived from Pre/Post Procedure Room to CCL 3. Patient remains on bed/stretcher for procedure. 12:55:43 Warm blankets applied, and nelson hugger turned on for patient comfort. 12:55:43 Correct patient and procedure confirmed by team. 12:55:44 ECG and BP/O2 sat monitors applied to patient. 12:55:45 Pre-procedure instructions explained to patient. 12:55:45 Pre-op teaching completed and patient verbalized understanding. 12:55:48 Family in waiting room. 12:55:49 Patient NPO since Midnight. 13:00:14 David Rankin MD present and monitoring patient for TIVA. 13:01:04 Vital chart was started 13:02:03 Baseline sample Acquired. 13:02:08 Rhythm: sinus rhythm , paced 13:02:09 Full Disclosure recording started 13:02:11 Is the patient allergic to Iodine/contrast media? No. 13:02:12 Is patient on blood thinner?No 13:02:13 Patient diabetic? No. 13:02:20 Previous problem with sedation/anesthesia? No ? 13:02:21 Snore? Yes 13:02:22 Sleep apnea? No 13:02:23 Deviated septum? No 13:02:24 Opens mouth fully? Yes 13:02:25 Sticks out tongue? Yes 13:02:29 Airway obstruction? No ? 13:02:32 Dentures? Yes out 13:02:36 Patient pain scale 0/10 ?. 13:02:43 IV patent on arrival in right hand with 0.9% NaCl at O. 13:02:44 Lab results completed and on chart. 13:02:53 0.9% NaCl 100 ml/hr I.V. was administered by Katlyn Roque RN; used for procedure; 13:03:01 Oxygen 2 l/min etCO2 Nasal cannula was administered by Katlyn Roque RN; used for procedure; 13:03:12 Lab Result : BUN 19 mg/dl 13:03:12 Lab Result : Creatinine 0.5 mg/dl 13:03:12 Lab Result : Hematocrit 39.5 % 13:03:12 Lab Result : Hemoglobin 13 g/dl 13:03:13 Hurricaine [place] 2 Sprays P.O. was administered by Katlyn Roque RN; used for procedure; 13:03:16 Alarms reviewed by RLizbeth NLizbeth 13:03:20 Refer to Anesthesia Notes for Sedation Medications was administered by Katlyn Roque RN; ; ::24 Physician arrived 13:03:24 --------ALL STOP TIME OUT------ 13::24 Final Timeout: patient, procedure, and site verified with staff and physician. All members of the team are in agreement. 13:03:32 Fire Safety Assessment: C--Open oxygen or nitrous oxide is being used. 13:03:35 Physical assessment completed. ASA score P 4 - A patient with severe systemic disease that is a constant threat to life as per Raciel Robison MD. 13:03:38 Sedation plan: TIVA Medication:Propofol 13:05:17 Procedure started. 13:05:26 ADOLFO started. 13:12:53 ADOLFO completed. 13:12:57 Procedure ended.(Physican Out) 13:17:46 Fluoroscopy time 00.00 minutes. 13:17:48 Fluoroscopy dose: 0 mGy 13:17:48 Flurop Dose total: 0 13:17:49 Contrast amount:Isovue 300 0ml. 13:18:10 Post-procedure physical assessment completed. ASA score P 4 - A patient with severe systemic disease that is a constant threat to life as per Raciel Robison MD. 13:18:18 Post procedure rhythm: unchanged. 13:18:20 Estimated blood loss: 0 ml 13:18:21 Post procedure instruction explained to patient.Patient verbalizes understanding. 13:18:22 Patient needs reinforcement of post procedure teaching. 13:18:35 Procedure and supply charges have been captured, reviewed, submitted and are correct. 13:18:37 Procedure Complication : No complications 13:18:47 Vital chart was stopped 13:18:48 See physician's report for complete and final results. 13:18:49 Report given to Pre/Post Procedure Room. 13:18:53 Patient transfered to Pre/Post Procedure Room with Stretcher. 13:18:55 Procedure ended. 13:18:55 Full Disclosure recording stopped 13:19:00 End room use (Document Last) Signature Audit [place] Stage Time Signature Unsigned Intra-Procedure 12/14/2018 Moustapha Miller 1:21:28 PM RT(R) Signatures Monitor : Moustapha Miller RT Signature : Date : Time : [place] [id number] [place] [address]
[2018-12-14] MEDS ORDERED: DIOVAN80 MG PO (11:20)
[2018-12-14 11:28] VITALS: BP 173/79; Ht 162.6 cm; Wt 59.5 kg
[2018-12-14 11:59] LABS: INR 0.99 (0.85-1.17); PROTIME 12.6 SECONDS (11.6-15.0)
[2018-12-14 12:01] LABS: BASOPHILS 0 % (0-2); CALC OSMOLALITY 275 mosm/kg (275-300); CALCIUM 8.8 mg/dL (8.5-10.1); CARBON DIOXIDE 28.9 mmol/L (21.0-32.0); CHLORIDE - SERUM 99 mmol/L (98-107); CREATININE - SERUM 0.5 mg/dL (0.6-1.3); GLUCOSE 97 mg/dL (74-106); HEMATOCRIT 39.5 % (36.0-48.0); IMMATURE GRANULOCYTES 0.3 % (0-5); LYMPHOCYTES 28.5 % (15-50); MCH 27.5 pg (26.0-34.0); MCHC 32.9 g/dL (31.0-37.0); MCV 83.5 fL (80.0-100.0); MONOCYTES 10.5 % (2-11); NEUTROPHILS 58.7 % (40-80); PLATELET COUNT 193 10x3/uL (130-400); POTASSIUM - SERUM 3.3 mmol/L (3.5-5.1); RBC 4.73 10x6/uL (4.00-5.40); RDW 14.3 % (11.5-14.5); SODIUM 137 mmol/L (136-145); UREA NITROGEN 19 mg/dL (7-18); WBC 3.4 10x3/uL (4.8-10.8); eGFR NON AFRICAN AMERICAN > 90 mL/min (90-120)
[2018-12-14] MEDS ORDERED: ALDACTONE25 MG PO (13:32)
--- NOTE | 2018-12-14 13:40 | NUR ---
2L NC, NO RESP DISTRESS. NO C/O PAIN OR NAUSEA. VSS. FAMILY AT BEDSIDE, CALL [facility] REACH.
--- NOTE | 2018-12-14 14:10 | NUR ---
SIPPING ON DRINK AND EATING SANDWICH WITH NO C/O NAUSEA. DENIES ANY NEEDS. VSS. CALL [facility] WITHIN REACH.
--- NOTE | 2018-12-14 14:25 | NUR ---
LEFT PIV D/C'D WITH CATHETER INTACT, BAND AID TO SITE. UP TO BEDSIDE TO GET DRESSED. AMBULATED TO RESTROOM.
--- NOTE | 2018-12-14 14:40 | NUR ---
DISCHARGE INSTRUCTIONS GIVEN ALONG WITH PRESCRIPTION FOR ALDACTONE. SPOKE WITH DR. MONTANEZ OVER PHONE.
--- NOTE | 2018-12-14 14:50 | NUR ---
TAKEN OUT VIA WHEELCHAIR BY CATH FEATURES REPORTER. LEFT FACILITY WITH FAMILY AND ALL PERSONAL BELONGINGS.
--- NOTE | 2018-12-16 13:10 | TEE ---
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 Ao AV Gradient Peak AV Mean AV Area MV Gradient Peak MV Mean MV Area INTERPRETATION: Doppler: 2-D: COLOR FLOW DOPPLER NORMAL SALINE STUDY: MISCELLANOUS: DIAGNOSIS: PLAN: Supervisor Blast Furnace:3 Dr. Herrera Grain Distributor: 1 USAMA NOVAK COMMENTS: DATE OF SERVICE: 12/14/2018 After general sedation via TIVA via anesthesia, transesophageal Omniplane probe was placed into distal esophagus and proximal stomach without difficulty. LVH is present. LV internal dimensions are normal. There is basically akinesis of the septal wall with some involving the apex. Overall function is reduced at 35% to 40%. 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 TRANSESOPHAGEAL ECHOCARDIOGRAM REPORT [id number] SHANICE SWENSON Difficult to tell if this is a paraivalvular leak through the coaptation cusp or valves itself. Left atrium appears normal. Mitral valve is thickened with wtvi-eb-dopvcmoy MR. Right-sided chambers are grossly normal. Moderate TR by color-flow imaging. TRANSINT:[id number] Voice Confirmation ID: [id number] DOCUMENT ID: [id number] at 1310 CC: [id number] DICTATION DATE: 12/14/18 1321 PRINTED CIRCUIT BOARD PANELS PLATER: 12/14/18 1422 DEP CLI 12/14/18 [facility] [address] [place] [id number]
== END 2018-12-14 14:50 | disposition home or self-care (01) ==
LOC: D.CATH 11:08 → D.ECHO 13:00 → D.CATH 13:00
PROVIDERS: ATTEND Internal Medicine Interventional Cardiology
DX: Z95.2 Presence of prosthetic heart valve (principal); I35.1 Nonrheumatic aortic (valve) insufficiency; I34.0 Nonrheumatic mitral (valve) insufficiency; Z01.812 Encounter for preprocedural laboratory examination

== ENCOUNTER → 2019-05-31 09:12 | Outpatient (CLI) | payer OTHER ==
[2018-12-14 11:28] VITALS: BMI 22.5
[~2019-05-31 09:12] MED LIST changes: +ALDACTONE25 MG PO; +DIOVAN80 MG PO; +K-TAB10 MEQ PO; +MIRAPEX1.5 MG PO; +PLAVIX75 MG PO
--- NOTE | 2019-06-07 11:09 | ST ---
PATIENT:SHANICE SWENSON MEDICAL RECORD: [id number] SEX: F LOCATION:[facility] ORDER #: ADMISSION DATE: 05/31/19 AGE OF PATIENT: 79 REFERRING PHYSICIAN: INTERPRETING PHYSICIAN: EWELINA SHANNON MD DATE OF SERVICE: 05/31/2019 PROCEDURE: Nuclear stress test. INDICATION: Angina, coronary artery disease, hypertension, and hyperlipidemia. TECHNIQUE: She was exercised on standard Lexiscan protocol with 32 mCi of sestamibi injected at peak stress, 11 mCi used previously for rest images. FINDINGS: Gated SPECT reveals a decreased ejection fraction at 48% with mild left ventricular dilatation. SPECT imaging Cardiolite was used as myocardial perfusion agent. She has definite reversibility anteriorly apically as well as laterally in anteroapical segments. This includes the basal, mid, apical, anterior segments as well as the apex itself. This is moderate to severe reversibility in the lateral segments. This includes apical lateral, mid lateral, and basal lateral segment. This is mild reversibility. The amount of myocardium involved is quite large. OVERALL IMPRESSION: This is a high risk abnormal nuclear stress test with large amount of myocardium involved with reversible ischemia anteriorly, apically, and laterally suggestive of multivessel coronary artery disease. TRANSINT:[id number] Voice Confirmation ID: [id number] DOCUMENT ID: [id number] EWELINA SHANNON MD at 1109 CC: APRIL SALDANA DO [id number] DICTATION DATE: 05/31/19 1632 SLUNK SKIN CURER: 05/31/19 2256 [facility] CLI 05/31/19 [place] [id number] [place] [id number]
== END | disposition home or self-care (01) ==
LOC: D.HCCARDIO 09:12
PROVIDERS: ATTEND Internal Medicine Interventional Cardiology
DX: I48.91 Unspecified atrial fibrillation (principal)

== ENCOUNTER 2019-06-16 09:37 | Outpatient (CLI) | payer OTHER ==
[~2019-06-16] VITALS: Ht 160 cm; Wt 59.5 kg
--- NOTE | ~2019-06-16 | HEMODYNAMI ---
PATIENT:SHANICE SWENSON MEDICAL RECORD: [id number] : 44 LOCATION:[facility] ADMISSION DATE: 06/16/19 Generatedon:06/16/201914:36 Patient name: SHANICE SWENSON Patient #: [id number] : 1940 Date of study: 06/16/2019 Page: Of Hemodynamic Procedure Report Patient Data Patient Demographics Procedure consent was obtained First Name: SHANICE Gender: Female Last Name: MESSI : 1940 [facility] Initial: Sage Age: 79 year(s) Patient #: [id number] Race: SSN: [id number] Additional ID: [id number] Contact details Address: [address] [place] [address] [place] State: [place] City: [place] Zip code: [address] Past Medical History Allergies Allergen Reaction Date Comments Reported Other allergy 12/16/2016 benadryl GHANSHYAM inhibitors 09/10/2017 Other allergy 09/10/2017 Benadryl Other allergy 12/14/2018 GHANSHYAM Inhibitors, Benadryl Other allergy 06/16/2019 Benadry, Ghanshyam inhibitors Admission Admission Data Admission Date: 06/16/2019 Admission Time: 9:37 Arrival Date: 06/16/2019 Arrival Time: 10:30 Admit Source: Other Insurance Payor: Private health insurance Height (in.): 63 BSA: 1.62 (m2) Height (cm.): 160.02 BMI: 23.38 (kg/m2) Weight (lbs.): 132 Weight (kg.): 59.87 Lab Results Lab Result Date: 06/16/2019 Lab Result Time: 0:00 Biochemistry Name Units Result Min Max BUN mg/dl 25 --(----)-* 7 18 Creatinine mg/dl 0.8 --(-*--)-- 0.6 1.3 eGFR ml/min 73.05050 *-(----)-- 90 120 NONAFRICAN CBC Name Units Result Min Max Hemoglobin g/dl 14.4 --(*---)-- 13.5 17.5 Procedure Procedure Types Cath Procedure Diagnostic Procedure [facility] w/Coronaries Sedation Charges Moderate Sedation up to 15 minutes PCI Procedure Coronary Stent Coronary Stent Initial Procedure Description Procedure Date Procedure Date: 06/16/2019 Procedure Start Time: 14:19 Procedure End Time: 14:33 Procedure Staff Name Function Raciel Robison MD Performing Physician Katlyn Roque RN Nurse Lola Fair RT Scrub Cony Carrillo RT Monitor Procedure Data Cath Procedure Fluoroscopy Diagnostic fluoroscopy Total fluoroscopy Time: 1.9 time: 1.9 min min Diagnostic fluoroscopy Total fluoroscopy dose: 452 dose: 452 mGy mGy Contrast Material Contrast Material Type Amount (ml) Isovue 300 90 Entry Location Entry Primary Successful Side Size Upsize Upsize Entry Closure Succes sful Closure Location (Fr) 1 (Fr) 2 (Fr) Remarks Device Remarks Femoral Right 5 Fr 6 Fr Exoseal artery Short Estimated blood loss: 5 ml Diagnostic catheters Device Type Used For End Catheter Placement MULTIPACK JL 4.0 5Fr Left Coronary catheter Angiography MULTIPACK 3DRC 5Fr Right Coronary catheter Angiography MULTIPACK Pigtail 5 Fr Right Coronary catheter Angiography Procedure Complications No complications Procedure Medications Medication Administration Route Dosage 0.9% NaCl I.V. 100 ml/hr Oxygen etCO2 Nasal cannula 2 l/min Lidocaine 2% added to field 20 Heparin Flush Bag added to field 2 bags (1000units/500ml NS) Versed I.V. 2 mg Fentanyl I.V. 50 mcg Versed I.V. 1 mg Fentanyl I.V. 50 mcg Heparin Bolus I.V. 4000 units Integrilin (Bolus I.V. 6.9 ml 2mg/ml) Integrilin (Bolus wasted 3.1 ml 2mg/ml) Plavix P.O. 600 mg Hemodynamics Rest BSA: 1.62 (m2) HGB: 14.4 (g/dl) O2 Consumption: Estimated: 150.37 (ml/min) O2 Co nsumption indexed: Estimated:92.82 (ml/min/m) Heart Rate: 76 (bpm) Snapshots Pre Cath Intra NCS Post Cath Vital Signs Time Heart Resp SPO2 etCO2 NIBP (mmHg) Rhythm Pain Sedation Rate (ipm) (%) (mmHg) Status Level (bpm) 13:30:26 75 14 99 12 Measuring Paced 0 (11) 10(A) , No pain 13:36:23 75 13 97 27 142/72(104) Paced 0 (11) 10(A) , No pain 13:40:39 75 13 97 24 144/69(102) Paced 0 (11) 10(A) , No pain 13:44:57 75 12 97 25.5 139/68(109) Paced 0 (11) 10(A) , No pain 13:49:13 75 13 98 21.8 140/67(112) Paced 0 (11) 10(A) , No pain 13:53:27 75 17 97 32.3 144/77(103) Paced 0 (11) 10(A) , No pain 13:57:41 75 13 97 28.5 149/77(116) Paced 0 (11) 10(A) , No pain 14:01:57 75 12 97 29.3 149/75(108) Paced 0 (11) 10(A) , No pain 14:06:15 75 12 98 26.3 142/69(105) Paced 0 (11) 10(A) , No pain 14:10:29 75 13 98 28.5 140/70(101) Paced 0 (11) 10(A) , No pain 14:14:43 75 12 98 21 137/70(99) Paced 0 (11) 9(A) , No pain 14:18:55 75 15 98 20.3 141/76(116) Paced 0 (11) 9(A) , No pain 14:23:09 75 11 97 27 159/73(100) Paced 0 (11) 9(A) , No pain 14:27:27 75 12 97 27.8 154/76(109) Paced 0 (11) 9(A) , No pain 14:31:47 75 13 98 26.3 144/68(109) Paced 0 (11) 10(A) , No pain Medications Time Medication Route Dose Verified Delivered Reason Notes Effectiveness by by 13:21:37 0.9% NaCl I.V. 100 Raciel Potts used for ml/hr RickiRojelio Roque procedure MD LIANG 13:21:43 Oxygen etCO2 2 Raciel Potts used for Nasal l/min RickiRojelio Roque procedure cannula MD LIANG 13:21:48 Lidocaine 2% added 20ml Raciel Schrader for local to vial [facility] anesthetic field MD SMITH 13:21:53 Heparin Flush added 2 Raciel Schrader used for Bag to bags St Rojelio Robison procedure (1000units/500ml field MD SMITH NS) 14:04:30 Versed I.V. 2 mg Raciel Freemanyla for sedation St Rojelio Roque MD RN 14:04:38 Fentanyl I.V. 50 Raciel Lopeza for sedation mcg [address] Rojelio Roque MD RN 14:10:04 Versed I.V. 1 mg Raciel Freemanyla for sedation St Rojelio Roque MD RN 14:10:13 Fentanyl I.V. 50 Raciel Freemanyla for sedation mcg [facility] Rojelio Roque MD RN 14:27:57 Heparin Bolus I.V. 4000 Raciel Freemanyla for verified units St Rojelio Roque antiplatelet with Dr. SMITH RN therapy Tau 14:28:11 Integrilin I.V. 6.9 Raciel Freemanyla for (Bolus 2mg/ml) ml St Rojelio Roque antiplatelet RN therapy 14:28:38 Integrilin wasted 3.1 Raciel Potts for (Bolus 2mg/ml) ml St Rojelio Roque antiplatelet RN therapy 14:28:51 Plavix P.O. 600 Raciel Potts for mg St Rojelio Roque antiplatelet RN therapy Procedure Log Time Note 12:44:19 Diagnostic Cath Status : Elective 12:44:49 Admit Source: Other 12:44:50 Arrival Date: 06/16/2019 10:30:00 AM 12:44:58 Insurance Payor : Private health insurance 12:45:24 Patient Height : 63 inches 12:45:35 Patient Weight : 132 lbs 13:19:39 Vital chart was started 13:21:37 0.9% NaCl 100 ml/hr I.V. was administered by Katlyn Roque RN; used for procedure; 13:21:43 Oxygen 2 l/min etCO2 Nasal cannula was administered by Katlyn Roque RN; used for procedure; 13:21:48 Lidocaine 2% 20ml vial added to field was administered by Raciel Robison MD; for local anesthetic; 13:21:53 Heparin Flush Bag (1000units/500ml NS) 2 bags added to field was administered by Raciel Robison MD; used for procedure; 13:25:47 Lab Result : eGFR NONAFRICAN 73.48750 ml/min 13:25:47 Lab Result : Creatinine 0.8 mg/dl 13::47 Lab Result : BUN 25 mg/dl 13::47 Lab Result : Hemoglobin 14.4 g/dl 13:26:08 Procedure Status Elective Heart Cath (OP). 13:26:10 Dyana Gonzales RT(R) sent for patient. Start room use. 13:26:12 Time tracking: Regular hours (M-F 7:00 - 5:00) 13:26:19 Plan of Care:Hemodynamics will remain stable., Cardiac rhythm will remain stable., Comfort level will be maintained., Respiratory function will remain adequate., Patient/ family verbilizes understanding of procedure., Procedure tolerated without complication., Recovers from procedure without complications.. 13:26:26 ACC Patient presents with Stable Angina CCS Anginal Class 2--Slight limitation of ordinary activity. 13:26:55 Patient received from Pre/Post Procedure Room to CCL 2 Alert and oriented. Tansferred to table in Supine position. 13:27:00 Signed procedure consent form obtained from patient. 13:27:01 Warm blankets applied, and nelson hugger turned on for patient comfort. 13:27:02 Correct patient and procedure confirmed by team. 13:27:03 ECG and BP/O2 sat monitors applied to patient. 13:27:04 Baseline sample Acquired. 13:27:09 Rhythm: sinus rhythm 13:27:11 Full Disclosure recording started 13:27:20 H&P Date Dictated: 05/16/2019 Within 30 days and on chart.. 13:27:24 Pre-procedure instructions explained to patient. 13:27:26 Family in waiting room. 13:27:28 Patient NPO since Midnight. 13:27:50 Patient allergic to Other allergyBenadry, Ghanshyam inhibitors 13:27:54 Is the patient allergic to Iodine/contrast media? No. 13:27:56 Was the patient premedicated? Yes 13:27:58 Is patient on blood thinner?No 13:27:59 Patient diabetic? No. 13:28:04 Previous problem with sedation/anesthesia? No ? 13:28:07 Snore? Yes 13:28:08 Sleep apnea? No 13:28:14 Dentures? Yes in tight 13:28:19 Patient pain scale 0/10 ?. 13:28:25 IV patent on arrival in left forearm with 0.9% NaCl at KVO. 13:28:32 Lab results completed and on chart. 13::37 Right groin area was prepped with chlora-prep and draped in sterile fashion ::38 Alarms reviewed by R. N. 13::39 Sharps counted by scrub and verified by R.N. 13:28:43 Physician arrived 13:28:55 2) 60-89 Mildly reduced kidney function, and other findings (as for stage 1) point to kidney disease. 13:29:26 Maximum allowable contrast dose (3.7 X eGFR X 0.75)205 ml. 13:29:36 Sedation plan: IV Moderate Sedation Medication:Versed, Fentanyl 14::37 --------ALL STOP TIME OUT------ ::38 Final Timeout: patient, procedure, and site verified with staff and physician. All members of the team are in agreement. 14:03:41 Right groin site verified by team. 14:03:45 Fire Safety Assessment: A--An alcohol-based skin anteseptic being used preoperatively., C--Open oxygen or nitrous oxide is being used., D--An ESU, laser, or fiber-optic light is being used. 14:03:49 Physical assessment completed. ASA score P 2 - A patient with mild systemic disease as per Raciel Robison MD. 14:04:26 Use device set Femoral Dx 14:04:27 ACIST Syringe (36949) opened to sterile field. 14:04:28 Bag Decanter (2002) opened to sterile field. 14:04:28 Medline Cath Pack ([id number]) opened to sterile field. 14:04:29 ACIST Hand Control (66257) opened to sterile field. 14:04:30 Versed 2 mg I.V. was administered by Katlyn Roque RN; for sedation; 14:04:30 ACIST Manifold (54877) opened to sterile field. 14:04:31 DIAGNOSTIC Multipack 5Fr catheter set ([id number]) opened to sterile field. 14:04:32 Tegaderm 4 x 4 (1626W) opened to sterile field. 14:04:34 EMERALD Guide Wire (108-658) opened to sterile field. 14:04:35 SHEATH 5FR [place] (SGK113) opened to sterile field. 14:04:38 Fentanyl 50 mcg I.V. was administered by Katlyn Roque RN; for sedation; 14:10:04 Versed 1 mg I.V. was administered by Katlyn Roque RN; for sedation; 14:10:13 Fentanyl 50 mcg I.V. was administered by Katlyn Roque RN; for sedation; 14:16:47 Procedure started. 14:19:29 Local anesthetic to right femoral artery with Lidocaine 2% by Raciel Robison MD.INITIAL ACCESS ONLY 14:19:40 A 5 Fr sheath was inserted into the Right Femoral artery 14:19:51 A MULTIPACK JL 4.0 5Fr catheter was advanced over the wire and used for Left Coronary Angiography. 14:19:53 LCA angiography performed. 14:19:56 Injector settings: Ml/sec: 3, Volume: 6, 14:20:35 Catheter removed. 14:21:13 A MULTIPACK 3DRC 5Fr catheter was advanced over the wire and used for Right Coronary Angiography. 14:21:43 RCA angiography performed. 14:21:46 Injector settings: Ml/sec: 3, Volume: 6, 14:23:06 Catheter removed. 14:23:44 A MULTIPACK Pigtail 5 Fr catheter was advanced over the wire and used for Right Coronary Angiography. 14:24:28 Aortic Root visualized 14:24:31 Catheter removed. 14:24:32 Proceeding to intervention. 14:25:16 WHISPER 300cm guide wire ([id number]) opened to sterile field. 14:25:17 SHEATH 6FR [place] (PXD492) opened to sterile field. 14:25:18 INFLATOR Merit BasixCompak (SE9635) opened to sterile field. 14:25:19 GUIDE 6FR AR 1.0 catheter (DK4SE02) opened to sterile field. 14:25:29 Sheath upsized to a 6 Fr Short. 14:25:46 Pre PCI Site: [place] mRCA has 80% stenosis. 14:25:51 ACC Pre-intervention JEANNE Flow is 3. 14:25:54 6 Fr ar 1 guide catheter was inserted over the wire 14:25:58 whisper wire advanced. 14:27:57 Heparin Bolus 4000 units I.V. was administered by Katlyn Jude RN; for antiplatelet therapy; verified with Dr. Moser 14:28:11 Integrilin (Bolus 2mg/ml) 6.9 ml I.V. was administered by Katlyn Roque RN; for antiplatelet therapy; 14::38 Integrilin (Bolus 2mg/ml) 3.1 ml wasted was administered by Katlyn Roque RN; for antiplatelet therapy; 14:28:51 Plavix 600 mg P.O. was administered by Katlyn Roque RN; for antiplatelet therapy; 14:29:41 Wire advanced across lesion. 14:30:46 Place stent Inflation Number: 1 A COBRA RX 4.0 X 15 Stent was prepped and advanced across the Mid RCA 80. The stent was deployed at 16 SERENA for 0:10 (min:sec) . 14:31:14 Stent catheter was removed intact over wire. 14:31:15 Wire removed. 14:31:15 Guide catheter removed. 14:31:25 Sheath removed intact; hemostasis achieved with Exoseal to the Right Femoral artery. 14:31:35 EXOSEAL 6Fr (EX600) opened to sterile field. 14:31:38 Procedure ended.(Physican Out) 14:32:08 Fluoroscopy time 01.90 minutes. 14:32:12 Fluoroscopy dose: 452 mGy 14:32:12 Flurop Dose total: 452 14:32:18 Dose Area Product 57465 mGy/cm. 14:32:22 Contrast amount:Isovue 300 90ml. 14:32:24 Sharps counted by scrub and verified by R.N. 14:32:25 Insertion/operative site no bleeding no hematoma. 14:32:27 Post-op/insertion site Right Femoral artery dressed using a 4 x 4 and Tegaderm. 14:32:29 Post Procedure Pulses reassessed and unchanged 14:32:32 Post procedure rhythm: unchanged. 14:32:35 Estimated blood loss: 5 ml 14:32:36 Post procedure instruction explained to patient.Patient verbalizes understanding. 14:32:37 Patient needs reinforcement of post procedure teaching. 14:32:54 Procedure type changed to Cath procedure, Diagnostic procedure, LHC, LHC w/Coronaries, Sedation Charges, Moderate Sedation up to 15 minutes, PCI procedure, Coronary Stent, Coronary Stent Initial 14:32:55 Procedure and supply charges have been captured, reviewed, submitted and are correct. 14:33:00 Procedure Complication : No complications 14:33:02 Vital chart was stopped 14:33:02 See physician's report for complete and final results. 14:33:31 Report given to Pre/Post Procedure Room. 14:33:33 Patient transfered to Pre/Post Procedure Room with Stretcher. 14:33:35 Procedure ended. 14:33:35 Full Disclosure recording stopped 14:33:41 ACC-PCI Only Patient was given prescriptions, or instructed by Raciel Robison MD to start/continue the following medications upon discharge: Plavix 14:33:43 End room use (Document Last) Intervention Summary Intervention Notes Time ActionType Lesion and Equipment Action# Pressure Duration Attributes Used 14:30:46 Place stent Mid RCA COBRA RX 1 16 00:10 4.0 X 15 Stent Device Usage Item Name Manufacture Quantity Catalog Hospital Part Current Minimal Lot# / Number Charge Number Stock Stock Serial# Code ACIST Syringe Acist 1 93016 429347 696077 555390 20 (13704) Medical Systems Inc Bag Decanter Microtek 1 2001S 615626 91245 128863 5 (2001S) Medical Inc. Medline Cath Medline 1 [id number] 699700 20713 711686 5 Pack ([id number]) ACIST Hand Acist 1 52638 918666 554477 428473 5 Control Medical (00791) Systems Inc ACIST Manifold Acist 1 15079 815409 708052 210220 5 (39863) Medical Systems Inc DIAGNOSTIC Cardinal 1 [id number] 295684 68702 807447 30 Multipack 5Fr Health catheter set (JI1949) Tegaderm 4 x 4 3M 1 1626W 028832 479561 770547 5 (1626W) EMERALD Guide Cardinal 1 502-455 074655 539863 459498 5 Wire (502-455) Health SHEATH 5FR Terumo 1 QAR485 610046 548412 198581 5 [place] (DIA484) MULTIPACK JL Cardinal 1 092108 5 4.0 5Fr Health catheter MULTIPACK 3DRC Cardinal 1 941711 5 5Fr catheter Health MULTIPACK Cardinal 1 499633 5 Pigtail 5 Fr Health catheter WHISPER 300cm Pham 1 [id number] 164397 231474 878759 5 guide wire Vascular (0586233RI) SHEATH 6FR Terumo 1 JVT441 541220 739446 342702 40 [place] (ZXH653) INFLATOR Merit Merit 1 FY2849 905833 924504 460772 15 [facility] Medical (CT3598) GUIDE 6FR AR Medtronic 1 [id number] 636635 26402 908000 1 1.0 catheter (UP4EA36) COBRA RX 4.0 X Celonova 1 873071 [id number] 808325 0 [id number] 15 stent Biosciences () EXOSEAL 6Fr Cardinal 1 EX600 549344 723211 660399 10 (EX600) Health Signature Audit [place] Stage Time Signature Unsigned Intra-Procedure 06/16/2019 Cony Carrillo 2:36:06 PM RT(R) Signatures Performing Physician : Signature : Raciel Robison MD Date : Time : Nurse : Katlyn Roque RN Signature : Date : Time : Monitor : Cony Carrillo RT Signature : Date : Time : [facility] [address] [place] [address]
[~2019-06-16 09:37] MED LIST changes: -K-TAB10 MEQ PO; -MIRAPEX1.5 MG PO; -PLAVIX75 MG PO
[2019-06-16 11:17] LABS: BASOPHILS 0.2 % (0-2); EOSINOPHILS 1.7 % (0-7); HEMATOCRIT 41.9 % (36.0-48.0); HEMOGLOBIN 14.4 g/dL (12-16); IMMATURE GRANULOCYTES 0.2 % (0-5); LYMPHOCYTES 23.3 % (15-50); MCH 29.8 pg (26.0-34.0); MCHC 34.4 g/dL (31.0-37.0); MCV 86.7 fL (80.0-100.0); MEAN PLATELET VOLUME 9.3 fL (7.4-10.4); MONOCYTES 8.6 % (2-11); PLATELET COUNT 195 10x3/uL (130-400); RBC 4.83 10x6/uL (4.00-5.40); WBC 4.8 10x3/uL (4.8-10.8)
[2019-06-16 11:36] LABS: ANION GAP 9.3 mmol/L (8-16); CALCIUM 9.5 mg/dL (8.5-10.1); CARBON DIOXIDE 31.4 mmol/L (21.0-32.0); CREATININE - SERUM 0.8 mg/dL (0.6-1.3); LDL-HDL RATIO 1.7 ratio (1.5-3.5); POTASSIUM - SERUM 4.7 mmol/L (3.5-5.1)
[2019-06-16 12:05] VITALS: BP 189/99; Ht 160 cm; Wt 59.5 kg
[2019-06-16] MEDS ORDERED: MIRAPEX1.5 MG PO (12:13)
[2019-06-16] MEDS ORDERED: MOBIC7.5 MG PO (12:14)
[2019-06-16] MEDS ORDERED: K-TAB10 MEQ PO (12:16)
--- NOTE | 2019-06-16 14:55 | NUR ---
RECEIVED PT FROM HOME HEALTH CLINICIAN. PT IS ALERT, DENIES ANY C/O. DRESSING IS CDI, PEDAL PULSES PALPABLE. VSS. AT BEDSIDE, CALL LIGHT IN REACH.
--- NOTE | 2019-06-16 15:03 | NUR ---
ASSISTED PT ONTO THE BEDPAN, PT VOIDED APPROX 400 CC CLEAR YELLOW URINE. DRESSING REMAINS CDI TO RIGHT GROIN. PEDAL PULSES PALPABLE. VSS, PT FLY SIPS OF SODA WITH NO NAUSEA.
--- NOTE | 2019-06-16 15:26 | NUR ---
PT ALERT, DENIES ANY C/O. DRESSING CDI, PEDAL PULSES PALPABLE. VSS, RESP WITH EASE. PT HAS FLY APPLESAUCE AND PO FLUIDS WITH NO NAUSEA. HOB IS FLAT, CALL LIGHT IN REACH.
[2019-06-16] MEDS ORDERED: PLAVIX75 MG PO (15:35)
--- NOTE | 2019-06-16 15:55 | NUR ---
PT ALERT, DENIES ANY C/O CHEST PAIN. PACED RHYTHM AT 75, BP IS 172/84. DRESSING IS CDI TO RIGHT GROIN, AREA IS SOFT AND NONTENDER. PEDAL PULSES PALPABLE. HOB IS FLAT.
--- NOTE | 2019-06-16 16:03 | NUR ---
ASSISTED PT ONTO BEDPAN, PT VOIDED APPROX 400 CC CLEAR YELLOW URINE, PERICARE PROVIDED. DRESSING CDI TO RIGHT GROIN, AREA IS SOFT AND NONTENDER.
--- NOTE | 2019-06-16 16:40 | NUR ---
PT SLEEPING INTERMITTENTLY. DRESSING IS CDI TO RIGHT GROIN, PEDAL PULSES PALPABLE. PACED RHYTHM, RATE IS 75, BP IS 148/79. O2 SAT 98% ON ROOM AIR.
--- NOTE | 2019-06-16 17:25 | NUR ---
ASSISTED PT ONTO BEDPAN, PAT VOIDED APPROX 400 CC CLEAR YELLOW URINE. DRESSING REMAINS CDI TO RIGHT GROIN, PEDAL PULSES PALPABLE. VSS, PT DENIES ANY C/O CHEST PAIN.
--- NOTE | 2019-06-16 17:46 | NUR ---
DRESSING IS CDI, PEDAL PULSES PALPABLE. PT IS ALERT AND DENIES ANY C/O. HOB ELEVATED AND SANDWICH/ PO FLUIDS SERVED. AT BEDSIDE.
--- NOTE | 2019-06-16 18:19 | NUR ---
PT HAS FLY SANDWICH WITH NO C/O NAUSEA. DRESSING IS CDI RIGHT GROIN, VSS, PT IS ALERT AND DENIES ANY C/O.
--- NOTE | 2019-06-16 18:37 | NUR ---
DC INSTRUCTIONS HAVE BEEN REVIEWED WITH PT AND WHO VERBALIZE UNDERSTANDING. PLAVIX PRESCRIPTION CALLED TO [facility] PER PT REQUEST. PT AND VERBALIZE UNDERSTANDING OF STARTING THIS MEDICATION TOMORROW. MED COUNSELOR SHEET TO PT. DRESSING REMAINS CDI TO RIGHT GROIN, AREA IS SOFT AND NONTENDER. PEDAL PULSES ARE PALPABLE. PT DENIES ANY NV DEFICT TO RLE. IV DC'D WITH CATH INTACT AND PT IS DRESSING FOR DC TO HOME WITH ASSIST.
--- NOTE | 2019-06-16 19:03 | NUR ---
1855 PT HAS DRESSED FOR DC TO HOME, IS ALERT AND DENIES ANY C/O. PT ESCORTED TO PRIVATE AUTO VIA WC BY NURSE WITH DRIVING HER HOME. PT HAS ALL PERSONAL BELONGINGS AND DC INSTRUCTIONS AT TIME OF DC.
--- NOTE | 2019-06-20 08:39 | OP ---
PATIENT NAME: SHANICE SWENSON MEDICAL RECORD: [id number] :42 LOCATION:D.[facility] ADMISSION DATE: SURGEON: ALEX MONTANEZ MD DATE OF OPERATION: 06/16/2019 PROCEDURE: Left heart catheterization, selective coronary angiography, right femoral artery approach. CATHETERS: A 5-Citizen Of [place] sheath, 5/4 left and right [place], 5/4 pig. The procedure was well tolerated. The patient was returned to tapia. Sheath removed. ExoSeal device placed. FINDINGS: Left ventriculography in not performed. LV gram not performed secondary to prosthetic aortic valve. Aortic root injection was performed, this shows mild AI. CORONARY ANATOMY: LEFT MAIN: Left main is free of disease. LAD: LAD is free of disease in the diagonal system. CIRCUMFLEX: Diminutive vessel, free of disease. RIGHT CORONARY ARTERY: This basically applies to whole inferolateral wall and shows about 80% stenosis in mid portion correlating nicely with nuclear study. PLAN: Intervention momentarily. DESCRIPTION OF PROCEDURE: A 5-Citizen Of [place] sheath was exchanged for a 6-[place]izen [place] sheath. AR guiding catheter provided excellent guide catheter support followed by 300 cm Whisper wire up to this placed across the 80% stenosed right coronary artery right down this portion of vessel. Stent deployed, it was 4.0 x 15 Cobra stent up to 14-16 atmospheres for 45 seconds. Final angiography shows excellent resolution of an 80% stenosis. No significant residual. JEANNE flow was 3 throughout the procedure. Heparin and Integrilin were used during the case. Sheath was closed with ExoSeal device. Plavix was loaded in the lab. TRANSINT:[id number] Voice Confirmation ID: [id number] DOCUMENT ID: [id number] ALEX MONTANEZ MD at 0839 CC: [id number] DICTATION DATE: 06/16/19 1436 RED HAT ENGINEER: 06/17/19 0010 DEP CLI 06/16/19 [facility] [address] [place] [address]
== END 2019-06-16 18:55 | disposition home or self-care (01) ==
LOC: D.CATH 09:37 → D.US 10:30 → D.CATH 13:30
PROVIDERS: ATTEND Internal Medicine Interventional Cardiology
DX: I25.119 Atherosclerotic heart disease of native coronary artery with unspecified angina pectoris (principal); I35.1 Nonrheumatic aortic (valve) insufficiency; Z95.2 Presence of prosthetic heart valve; Z01.812 Encounter for preprocedural laboratory examination

== ENCOUNTER → 2019-07-12 10:52 | Outpatient (CLI) | payer OTHER ==
[2019-06-16 12:05] VITALS: BMI 23.2
[~2019-07-12 10:52] MED LIST changes: +K-TAB10 MEQ PO; +MIRAPEX1.5 MG PO; +PLAVIX75 MG PO
--- NOTE | 2019-07-14 13:56 | EC ---
PATIENT:SHANICE SWENSON DATE OF SERVICE: 07/12/19 SEX: F MEDICAL RECORD: [id number] DATE OF : 44 LOCATION:[facility] AGE OF PATIENT: 79 ADMISSION DATE: 07/12/19 REFERRING PHYSICIAN: INTERPRETING PHYSICIAN: ALEX MONTANEZ MD ECHOCARDIOGRAM REPORT ECHO CHARGES 4 ECHO COMPLETE Date: 07/12/19 CLINICAL DIAGNOSIS: CARDIOMYOPATHY/DYSPNEA/ANGINA H/O HTN/PACEMAKER PLACEMENT/ AVR ECHOCARDIOGRAPHIC MEASUREMENTS (adult normal given) AC root (d.<3.7cm) 3.6 cm LV Septum d (<1.2 cm> 1.1 cm Valve Excursion 1.6 cm LV Septum (systole) 1.8 cm Left Atria (s.<4.0cm> 3.9 cm LVPW d(<1.2cm) 1.4 cm RV (d.<2.3cm) 2.4 cm LVPW (sytole) 1.9 cm LV diastole(<5.6CM) 5.2 cm MV E-F(>70mm/sec) cm LV systole 3.1 cm LVOT Diameter 1.7 cm MV exc.(>10mm) cm Est.ejection fraction (50-75%) % DOPPLER: LVIT cm/sec A 154 cm/sec E 167 cm/sec LA cm/sec RVSP 53.0 mmHg LVOT 69.0 cm/sec AOP1/2T 580.0m/s Asc. Ao 207 cm/sec RVOT 46.0 cm/sec RA cm/sec PA 89.0 cm/sec AV Gradient Peak 17.2 mmHg AV Mean 11.3 mmHg AV Area 0.8 cm MV Gradient Peak 11.2 mmHg MV Mean 4.0 mmHg MV Area cm COMMENTS: OP - HC Take Away Attendant: 1 USAMA KISHORE Lead Android Developer: 3 Dr. Herrera TAPE# PACS Pericardial Effusion N DATE OF SERVICE: Adequate 2D, color flow imaging, spectral Doppler, and M-mode. Borderline LVH. LV internal dimensions are normal. LV is mildly globally hypo with EF borderline normal mildly reduced at 45% to 50%. Tissue prosthetic aortic valve is noted with acceptable Doppler velocity, no more than trace MR. Right-sided chambers appear grossly normal. Moderate TR. ECHOCARDIOGRAM REPORT [id number] SHANICE SWENSON TRANSINT:[id number] Voice Confirmation ID: [id number] DOCUMENT ID: [id number] ALEX MONTANEZ MD at 1356 CC: [id number] DICTATION DATE: 07/12/19 1615 FLYER REPAIRER: 07/13/19 0124 DEP CLI 07/12/19 [place] [id number] [place] [id number]
== END | disposition home or self-care (01) ==
LOC: D.HCCECHO 10:52
PROVIDERS: ATTEND Internal Medicine Interventional Cardiology
DX: I42.9 Cardiomyopathy, unspecified (principal)

== ENCOUNTER → 2019-09-15 18:44 | Outpatient (CLI) | payer OTHER ==
[2019-06-16 12:05] VITALS: BMI 23.2
[2019-09-15 19:32] LABS: LDL-HDL RATIO 1.9 ratio (1.5-3.5)
== END | disposition home or self-care (01) ==
LOC: D.LABREF 18:44
PROVIDERS: ATTEND Internal Medicine Interventional Cardiology
DX: I10 Essential (primary) hypertension (principal)

== ENCOUNTER → 2019-10-25 12:33 | Outpatient (CLI) | payer OTHER ==
[2019-06-16 12:05] VITALS: BMI 23.2
== END | disposition home or self-care (01) ==
LOC: D.NM 12:32 → D.CT 12:33 → D.NM 13:00
PROVIDERS: ATTEND Internal Medicine Pulmonary Disease
DX: I27.21 Secondary pulmonary arterial hypertension (principal); R06.09 Other forms of dyspnea

== ENCOUNTER → 2019-10-26 10:37 | Outpatient (CLI) | payer OTHER ==
[2019-06-16 12:05] VITALS: BMI 23.2
== END | disposition home or self-care (01) ==
LOC: D.NM 10-25 13:00
PROVIDERS: ATTEND Internal Medicine Pulmonary Disease
DX: I27.20 Pulmonary hypertension, unspecified (principal); R06.09 Other forms of dyspnea

== ENCOUNTER → 2019-11-09 14:51 | Outpatient (CLI) | payer OTHER ==
[2019-06-16 12:05] VITALS: BMI 23.2
[2019-11-09 17:08] LABS: BASOPHILS 0.2 % (0-2); EOSINOPHILS 2.4 % (0-7); HEMATOCRIT 42.2 % (36.0-48.0); IMMATURE GRANULOCYTES 0.2 % (0-5); LYMPHOCYTES 23.3 % (15-50); MCH 29.4 pg (26.0-34.0); MCHC 33.2 g/dL (31.0-37.0); MCV 88.7 fL (80.0-100.0); MEAN PLATELET VOLUME 8.7 fL (7.4-10.4); NEUTROPHILS 65.9 % (40-80); PLATELET COUNT 170 10x3/uL (130-400); RBC 4.76 10x6/uL (4.00-5.40); RDW 13.3 % (11.5-14.5)
[2019-11-09 18:10] LABS: ALBUMIN 3.8 g/dL (3.4-5.0); BILIRUBIN - DIRECT 0.19 mg/dL (0.00-0.30); BILIRUBIN - INDIRECT 0.44 mg/dL (0.00-1.00); BILIRUBIN - TOTAL 0.63 mg/dL (0.2-1.3); PROTEIN - SERUM 7.5 g/dL (6.4-8.2); THYROID STIMULATING HORMONE 1.19 uIU/mL (0.36-3.74)
[2019-11-10 07:13] LABS: ANA REFLEX - ANTICHROMATIN ABS <0.2 AI (0.0-0.9); ANA REFLEX - CENTROMERE B ABS <0.2 AI (0.0-0.9); ANA REFLEX - DBL STRANDED DNA 1 IU/mL (0-9); ANA REFLEX - DIRECT Positive (Negative); ANA REFLEX - JO-1 AB <0.2 AI (0.0-0.9); ANA REFLEX - RNP ANTIBODIES 0.2 AI (0.0-0.9); ANA REFLEX - SCL-70 <0.2 AI (0.0-0.9); ANA REFLEX - SJOGRENS AB SSA >8.0 AI (0.0-0.9); ANA REFLEX - SJOGRENS AB SSB <0.2 AI (0.0-0.9); ANA REFLEX - SMITH AB <0.2 AI (0.0-0.9)
== END | disposition home or self-care (01) ==
LOC: D.RT 14:30
PROVIDERS: ATTEND Internal Medicine Pulmonary Disease
DX: R06.09 Other forms of dyspnea (principal)

== ENCOUNTER → 2019-12-20 17:31 | Outpatient (CLI) | payer OTHER ==
[2019-06-16 12:05] VITALS: BMI 23.2
[2019-12-20 17:52] LABS: CHOL - HDL RATIO 2.2 ratio (2.3-4.1)
== END | disposition home or self-care (01) ==
LOC: D.LABREF 17:31
PROVIDERS: ATTEND Internal Medicine Interventional Cardiology
DX: E78.5 Hyperlipidemia, unspecified (principal)